=== PATIENT | male | born 1975 | race Caucasian/White ===

== ENCOUNTER → 2016-04-26 | Outpatient (CLI) | payer BC ==
--- NOTE | 2016-04-26 17:20 | PN ---
DATE OF SERVICE: 04/26/2016 This patient is a 40-year-old gentleman who has been followed in the sleep center for treatment of obstructive sleep apnea/hypopnea syndrome. I discussed results of the diagnostic sleep study and CPAP titration with the patient and his family in detail. Patient has moderate obstructive sleep apnea/hypopnea syndrome. He was recently started on treatment with CPAP at the pressure of 10 cm of water. He feels better with the machine. No feeling of pain in the body in the morning like he felt before. [place] Sleepiness Scale today is 8. I checked patient's CPAP unit. Usage for more than 4 hours is 17 out of 30 nights, although patient is using machine practically 100% of the time. Sometimes the mask goes out in the morning. For the whole time of usage, he used it for more than 4 hours during 28 out of 42 nights. Apnea-hypopnea index reading from the machine is 1.6 for the whole time; for the last night 0.9 only. Leak is up to 70 L per minute, which is acceptable. No snoring with the machine, according to his . MEDICATIONS: Sertraline. During physical exam, patient is in no distress. BP 135/75, HR 80, RR 16. Weight 232. Temperature 97.8. Oxygen saturation at room air 95%. HEENT: PERRLA, EOMI. Evaluation of oropharynx showed tongue protrudes midline. NECK: Supple. No JVD. Thyroid is not palpable. LUNGS: Clear to percussion and to auscultation. Good air exchange. No wheezing or rhonchi. HEART: S1, S2 regular. No murmurs, gallops or rubs. ABDOMEN: Slightly obese. EXTREMITIES: No clubbing or cyanosis. CASH MANAGEMENT OFFICER: Awake, alert, and oriented x3. Cranial nerves 2 to 7 intact. There is no fasciculation or atrophy noted. No focal deficits observed. IMPRESSION: 1. Moderate obstructive sleep apnea/hypopnea syndrome. Apnea-hypopnea index 17.6 with oxygen desaturation to 82.7%, controlled with CPAP at 10 cm of water. Patient is benefitting from treatment with the machine. Compliance is borderline. 2. Slight obesity. 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 4. History of depression. 5. Status post appendectomy. 6. Status post cholecystectomy. PLAN: 1. Continue treatment with CPAP every night for the whole night with the same RAMP 30 minutes starting from 5 cm of water. 2. Losing weight. 3. Sleep hygiene with regular time in bed for at least 8 hours. 4. Will consider using special pillow for the CPAP, which has space for the CPAP tube, because patient prefers to sleep on the side position. Other types of mask also could be used; for example, Optilife live nasal pillows. Thank you very much for allowing me to participate in the management your patient. Sincerely, Richar Membreno MD, PhD, FAASM. Diplomat of [place] [employer], Sleep Medicine Board by [place] [employer] [place] [employer] Inbound Customer Service Representative of [facility] [place]
== END | disposition home or self-care (01) ==
LOC: SLEEP 11:56
PROVIDERS: ATTEND Internal Medicine
DX: G47.33 Obstructive sleep apnea (adult) (pediatric) (principal); E66.9 Obesity, unspecified; F32.9 Major depressive disorder, single episode, unspecified; Z98.890 Other specified postprocedural states

== ENCOUNTER 2017-06-26 16:59 | Emergency (ER) | payer BC ==
[2017-06-26 17:15] VITALS: TEMP 97.5
[2017-06-26] MEDS ORDERED: MAG HYDROX/AL HYDROX/SIMETH 30 ML, HYOSCYAMINE ELIXIR 10 ML, CIMETIDINE HCL 300 MG, LID... PO STA ×4 (18:22)
--- NOTE | 2017-06-26 18:25 | ED ---
General Adult HPI - General Chief complaint: Chest Pain Stated complaint: Chest congestion Time Seen by Provider: 06/26/17 18:13 Source: patient, RN notes reviewed Mode of arrival: ambulatory Limitations: no limitations - History of Present Illness Initial comments: 42-year-old male presents with epigastric pain and chest pain which began approximately 2 hours prior to arrival. 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 He has never had heartburn before but states it increases symptoms to heartburn. Denies any radiating character to his pain. No diaphoresis. No vomiting. No history of CAD. Pain was exertional. At the time my evaluation his pain is present but is improved. - Related Data Home Medications Medication Instructions Recorded Confirmed Sertraline [Zoloft] 100 mg PO DAILY 06/26/17 06/26/17 Previous Rx's Medication Instructions Recorded Omeprazole [PriLOSEC] 20 mg PO AC-BID #60 cap 06/26/17 Allergies Allergy/AdvReac Type Severity Reaction Status Date / Time No Known Allergies Allergy Verified 06/26/17 19:01 Review of Systems ROS Statement: Those systems with pertinent positive or pertinent negative responses have been documented in the HPI. ROS Other: All systems not noted in ROS Statement are negative. Past Medical History Past Medical History: No Reported History History of Any Multi-Drug Resistant Organisms: None Reported Past Surgical History: Appendectomy, Cholecystectomy Past Psychological History: No Psychological Hx Reported Smoking Status: Never smoker Past Alcohol Use History: Occasional Past Drug Use History: None Reported General Exam Limitations: no limitations General appearance: alert, in no apparent distress Head exam: Present: atraumatic, normocephalic Eye exam: Present: normal appearance, PERRL, EOMI ENT exam: Present: normal exam Neck exam: Present: normal inspection. Absent: tenderness, meningismus Respiratory exam: Present: normal lung sounds bilaterally. Absent: respiratory distress, wheezes Cardiovascular Exam: Present: regular rate, normal rhythm GI/Abdominal exam: Present: soft, tenderness (Epigastric tenderness palpation). Absent: distended Extremities exam: Present: normal inspection, normal capillary refill. Absent: pedal edema, calf tenderness Neurological exam: Present: alert, oriented X3, CN II-XII intact. Absent: motor sensory deficit Psychiatric exam: Present: normal affect, normal mood Skin exam: Present: warm, dry, intact. Absent: cyanosis, diaphoretic Course Vital Signs 06/26/17 06/26/17 06/26/17 17:11 18:40 19:35 Temperature 97.5 F L Pulse Rate 78 75 74 Respiratory 18 16 16 Rate Blood Pressure 150/74 126/78 128/83 O2 Sat by Pulse 97 96 97 Oximetry - Reevaluation(s) Reevaluation #1: 06/26/17 18:24 Patient is eating Combos at the time my evaluation. EKG Findings - EKG Comments: EKG Findings:: EKG, normal sinus rhythm, ventricular rate 64, HI interval 174, QRS duration 104, no ST segment elevation or depression, no T-wave abnormality. Medical Decision Making - Medical Decision Making 42-year-old male presenting for evaluation of epigastric abdominal pain and chest pain. Patient describes this as a burning sensation with increased in salivation. EKG shows no definitive signs of ischemia. Workup including CBC, CMP, and troponin is negative. Chest x-ray negative for any focal airspace disease or acute process. Patient given a GI cocktail and has immediate relief of symptoms. History consistent with gastric reflux. He will be started on a proton pump inhibitor and will follow-up with his primary care physician. He will return to the emergency department with any change in chest pain or new concerns. - Lab Data Result diagrams: 06/26/17 18:45 06/26/17 18:45 Lab Results 06/26/17 06/26/17 06/26/17 Range/Units 18:45 18:45 18:45 WBC 6.8 (3.8-10.6) k/uL RBC 5.17 (4.30-5.90) m/uL Hgb 15.5 (13.0-17.5) gm/dL Hct 44.0 (39.0-53.0) % MCV 85.2 (80.0-100.0) fL MCH 29.9 (25.0-35.0) pg MCHC 35.1 (31.0-37.0) g/dL RDW 13.1 (11.5-15.5) % Plt Count 251 (150-450) k/uL Neutrophils % 64 % Lymphocytes % 24 % Monocytes % 5 % Eosinophils % 4 % Basophils % 1 % Neutrophils # 4.4 (1.3-7.7) k/uL Lymphocytes # 1.6 (1.0-4.8) k/uL Monocytes # 0.4 (0-1.0) k/uL Eosinophils # 0.3 (0-0.7) k/uL Basophils # 0.0 (0-0.2) k/uL PT (9.0-12.0) sec INR (<1.2) APTT (22.0-30.0) sec Sodium 143 (137-145) mmol/L Potassium 4.6 (3.5-5.1) mmol/L Chloride 105 (98-107) mmol/L Carbon Dioxide 26 (22-30) mmol/L Anion Gap 12 mmol/L BUN 18 (9-20) mg/dL Creatinine 0.70 (0.66-1.25) mg/dL Est GFR (CKD-EPI)AfAm >90 (>60 ml/min/1.73 sqM) Est GFR (CKD-EPI)NonAf >90 (>60 ml/min/1.73 sqM) Glucose 97 (74-99) mg/dL Calcium 9.8 (8.4-10.2) mg/dL Magnesium 2.1 (1.6-2.3) mg/dL Total Bilirubin 0.4 (0.2-1.3) mg/dL AST 39 (17-59) U/L ALT 64 (21-72) U/L Alkaline Phosphatase 56 (38-126) U/L Total Creatine Kinase 148 (55-170) U/L CK-MB (CK-2) 1.0 (0.0-2.4) ng/mL CK-MB (CK-2) Rel Index 0.7 Troponin I <0.012 (0.000-0.034) ng/mL Total Protein 7.3 (6.3-8.2) g/dL Albumin 4.5 (3.5-5.0) g/dL Lipase 33 (23-300) U/L 06/26/17 Range/Units 18:45 WBC (3.8-10.6) k/uL RBC (4.30-5.90) m/uL Hgb (13.0-17.5) gm/dL Hct (39.0-53.0) % MCV (80.0-100.0) fL MCH (25.0-35.0) pg MCHC (31.0-37.0) g/dL RDW (11.5-15.5) % Plt Count (150-450) k/uL Neutrophils % % Lymphocytes % % Monocytes % % Eosinophils % % Basophils % % Neutrophils # (1.3-7.7) k/uL Lymphocytes # (1.0-4.8) k/uL Monocytes # (0-1.0) k/uL Eosinophils # (0-0.7) k/uL Basophils # (0-0.2) k/uL PT 10.1 (9.0-12.0) sec INR 1.0 (<1.2) APTT 23.8 (22.0-30.0) sec Sodium (137-145) mmol/L Potassium (3.5-5.1) mmol/L Chloride (98-107) mmol/L Carbon Dioxide (22-30) mmol/L Anion Gap mmol/L BUN (9-20) mg/dL Creatinine (0.66-1.25) mg/dL Est GFR (CKD-EPI)AfAm (>60 ml/min/1.73 sqM) Est GFR (CKD-EPI)NonAf (>60 ml/min/1.73 sqM) Glucose (74-99) mg/dL Calcium (8.4-10.2) mg/dL Magnesium (1.6-2.3) mg/dL Total Bilirubin (0.2-1.3) mg/dL AST (17-59) U/L ALT (21-72) U/L Alkaline Phosphatase (38-126) U/L Total Creatine Kinase (55-170) U/L CK-MB (CK-2) (0.0-2.4) ng/mL CK-MB (CK-2) Rel Index Troponin I (0.000-0.034) ng/mL Total Protein (6.3-8.2) g/dL Albumin (3.5-5.0) g/dL Lipase (23-300) U/L Disposition Clinical Impression: Gastric reflux Disposition: HOME SELF-CARE Condition: Good Instructions: Gastritis (ED), Diet for Stomach Ulcers and Gastritis (ED) Prescriptions: Omeprazole [PriLOSEC] 20 mg PO AC-BID #60 cap Referrals: Chika Ortiz III, MD [Primary Care Provider] - 1-2 days Time of Disposition: 20:01
[2017-06-26 18:41] VITALS: RESP 16
[2017-06-26 19:00] LABS: Basophils % (A) 1 %; Eosinophils # (A) 0.3 k/uL (0-0.7); Eosinophils % (A) 4 %; HGB 15.5 gm/dL (13.0-17.5); Lymphocytes # (A) 1.6 k/uL (1.0-4.8); Lymphocytes % (A) 24 %; MCH 29.9 pg (25.0-35.0); MCHC 35.1 g/dL (31.0-37.0); MCV 85.2 fL (80.0-100.0); Mean Platelet Volume 6.6; Monocytes # (A) 0.4 k/uL (0-1.0); Monocytes % (A) 5 %; Neutrophils # (A) 4.4 k/uL (1.3-7.7); Neutrophils % (A) 64 %; Platelet Count 251 k/uL (150-450); RBC 5.17 m/uL (4.30-5.90); RDW 13.1 % (11.5-15.5); WBC 6.8 k/uL (3.8-10.6)
[2017-06-26 19:10] LABS: Partial Thromboplastin Time 23.8 sec (22.0-30.0); Prothrombin Time 10.1 sec (9.0-12.0)
[2017-06-26 19:11] LABS: ALT 64 U/L (21-72); AST 39 U/L (17-59); Albumin 4.5 g/dL (3.5-5.0); Alkaline Phosphatase 56 U/L (38-126); Anion Gap 12 mmol/L; Blood Urea Nitrogen 18 mg/dL (9-20); Calcium 9.8 mg/dL (8.4-10.2); Carbon Dioxide 26 mmol/L (22-30); Chloride 105 mmol/L (98-107); Glucose 97 mg/dL (74-99); Lipase 33 U/L (23-300); Magnesium 2.1 mg/dL (1.6-2.3); Potassium 4.6 mmol/L (3.5-5.1); Sodium 143 mmol/L (137-145); Total Bilirubin 0.4 mg/dL (0.2-1.3); Total Protein 7.3 g/dL (6.3-8.2)
[2017-06-26 19:26] LABS: Creatine Kinase 148 U/L (55-170)
--- NOTE | 2017-06-26 19:37 | XR ---
EXAMINATION TYPE: XR chest 2V DATE OF EXAM: 06/26/2017 COMPARISON: NONE HISTORY: Chest pain TECHNIQUE: Frontal and lateral views of the chest are obtained. FINDINGS: Heart and mediastinum are normal. Lungs are clear. Diaphragm is normal. There are chest le ads. Bony thorax appears normal. IMPRESSION: Normal chest
[2017-06-26 19:39] LABS: Troponin I <0.012 ng/mL (0.000-0.034)
[2017-06-26 19:41] VITALS: BP 128/83; PULSE 74
== END 2017-06-26 20:29 | disposition home or self-care (01) ==
LOC: EC 16:59
DX: K21.9 Gastro-esophageal reflux disease without esophagitis (principal); Z79.899 Other long term (current) drug therapy; Z90.49 Acquired absence of other specified parts of digestive tract
CPT/HCPCS: 36415; 71046; 80053; 82550; 82553; 83690; 83735; 84484; 85025; 85610; 85730; 93005; 99285

== ENCOUNTER → 2017-10-21 | Outpatient (CLI) | payer BC ==
--- NOTE | 2017-10-21 17:59 | XR ---
Bilateral elbows HISTORY: Bilateral elbow pain 3 views of each elbow submitted on a total of 6 images. Bone mineralization, joint spaces and alignment are maintained bilaterally. No evident joint effusion . Soft tissue swelling is suspected. No fracture or dislocation. IMPRESSION: There may be some mild soft tissue swelling, correlate.
--- NOTE | 2017-10-21 19:10 | XR ---
Right shoulder HISTORY: Pain, repetitive work 2 views of the right shoulder Bone mineralization, joint spaces and alignment are maintained. Right lung apex as visualized is norm al. No fracture or dislocation. Distal acromion slightly downturned. IMPRESSION: Normal right shoulder, shoulder MRI may be of benefit.
== END | disposition home or self-care (01) ==
LOC: RADXRMAIN 13:31
PROVIDERS: ATTEND Nurse Practitioner Family
DX: M25.512 Pain in left shoulder (principal); M25.522 Pain in left elbow; M25.521 Pain in right elbow

== ENCOUNTER 2017-12-24 19:03 | Emergency (ER) | payer BC, OTHER ==
[2017-12-24 19:35] VITALS: BP 128/79; PULSE 80; RESP 18; TEMP 98.3
== END 2017-12-24 20:28 ==
LOC: EC 19:03
DX: Z02.9 Encounter for administrative examinations, unspecified (principal)

== ENCOUNTER 2018-01-24 20:32 | Emergency (ER) | payer BC, OTHER ==
[2018-01-24 21:09] VITALS: TEMP 98.7
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
[2018-01-24 22:08] VITALS: BP 144/87; PULSE 82; RESP 16
== END 2018-01-24 22:00 | disposition home or self-care (01) ==
LOC: EC 20:32
DX: Z02.89 Encounter for other administrative examinations (principal); F32.9 Major depressive disorder, single episode, unspecified; Z79.899 Other long term (current) drug therapy
CPT/HCPCS: 82075; 99283

== ENCOUNTER 2018-02-10 13:41 | Observation (INO) | payer BC ==
--- NOTE | 2018-02-10 14:27 | ED ---
Syncope HPI - General Source: patient, RN notes reviewed, old records reviewed Mode of arrival: EMS Limitations: no limitations <Viky Olsen - Last Filed: 02/10/18 18:05> <Luis Alfredo Hoffman - Last Filed: 02/10/18 18:14> - General Chief Complaint: Syncope Stated Complaint: Fall/back head injury Time Seen by Provider: 02/10/18 14:23 - History of Present Illness Initial Comments: Patient is a 42-year-old male presents for his current status". Patient reports that he was at home, working on putting his house with [employer]. Patient states that he was standing. The next thing he knew he started feeling slightly dizzy and lightheaded. He reports that he fell backwards and he woke up due to back pain on the floor. He reports he hit his head. Patient states that he at this time is chest pain. He denies any significant abdominal pain. Patient reports that he is generally healthy. (Viky Olsen) - Related Data Home Medications Medication Instructions Recorded Confirmed Sertraline [Zoloft] 100 mg PO DAILY 06/26/17 02/10/18 Allergies Allergy/AdvReac Type Severity Reaction Status Date / Time No Known Allergies Allergy Verified 02/10/18 14:42 Review of Systems ROS Other: All systems not noted in ROS Statement are negative. <Viky Olsen - Last Filed: 02/10/18 18:05> ROS Other: All systems not noted in ROS Statement are negative. <Luis Alfredo Hoffman - Last Filed: 02/10/18 18:14> ROS Statement: Those systems with pertinent positive or pertinent negative responses have been documented in the HPI. Past Medical History Past Medical History: Asthma History of Any Multi-Drug Resistant Organisms: None Reported Past Surgical History: Appendectomy, Cholecystectomy Past Psychological History: Depression Smoking Status: Never smoker Past Alcohol Use History: None Reported Past Drug Use History: None Reported <Viky Olsen - Last Filed: 02/10/18 18:05> General Exam Limitations: no limitations General appearance: alert, in no apparent distress Head exam: Present: atraumatic, normocephalic, normal inspection Eye exam: Present: normal appearance, PERRL, EOMI. Absent: scleral icterus, conjunctival injection, periorbital swelling ENT exam: Present: normal exam, mucous membranes moist Neck exam: Present: normal inspection. Absent: tenderness, meningismus, lymphadenopathy Respiratory exam: Present: normal lung sounds bilaterally. Absent: respiratory distress, wheezes, rales, rhonchi, stridor Cardiovascular Exam: Present: regular rate, normal rhythm, normal heart sounds. Absent: systolic murmur, diastolic murmur, rubs, gallop, clicks GI/Abdominal exam: Present: soft, normal bowel sounds. Absent: distended, tenderness, guarding, rebound, rigid Extremities exam: Present: normal inspection, full ROM, normal capillary refill , other (Circular contusion of her mid back from falling on the paint can.). Absent: tenderness, pedal edema, joint swelling, calf tenderness Back exam: Present: normal inspection Neurological exam: Present: alert, oriented X3, CN II-XII intact Psychiatric exam: Present: normal affect, normal mood Skin exam: Present: warm <Viky Olsen - Last Filed: 02/10/18 18:05> <Luis Alfredo Hoffman - Last Filed: 02/10/18 18:14> - General Exam Comments Initial Comments: 42-year-old male. Alert and oriented 3. Patient appears in no significant distress. (Viky Olsen) Course <Viky Olsen - Last Filed: 02/10/18 18:05> <Luis Alfredo Hoffman - Last Filed: 02/10/18 18:14> Vital Signs 02/10/18 14:03 Temperature 97.1 F L Pulse Rate 83 Respiratory 18 Rate Blood Pressure 118/79 O2 Sat by Pulse 96 Oximetry - Reevaluation(s) Reevaluation #1: 02/10/18 18:12 PA supervision: I personally do a [id number] evaluation the patient including examination. Patient has equal episode last evening sudden onset. He had no preceding symptoms and has never had this before. Examination was unremarkable except for tenderness palpation of the mid and low back area where he impacted a paint can. I do agree with the assessment and plan the patient be admitted for evaluation of syncope. I did discuss case with Dr. mtz. (Luis Alfredo Hoffman) EKG Findings - EKG Comments: EKG Findings:: EKG performed at 1444 shows sinus rhythm, nonspecific ST and normality. Ventricular rate 75 beats were minute. Was 172. QRS ration 104 ms. QT QTC 34/420 ms. <Viky Olsen - Last Filed: 02/10/18 18:05> Medical Decision Making - Lab Data Result diagrams: 02/10/18 14:49 02/10/18 14:49 <Viky Olsen - Last Filed: 02/10/18 18:05> - Lab Data Result diagrams: 02/10/18 14:49 02/10/18 14:49 <Luis Alfredo Hoffman - Last Filed: 02/10/18 18:14> - Medical Decision Making 42-year-old male presents emergency department today with chief complaint of syncopal episode. He fell from standing hit passed out, hit his head and back. He did have loss of conscious. CT of the brain was completed and negative for any acute process. Patient's EKG, and chest x-ray are negative for any acute process. Thoracic and lumbar spine x-rays were showing no acute changes. Patient's blood work was reviewed and unremarkable. This time Patient case discussed with Dr. Hoffman. She does syncopal episode of unknown origin we will that the Patient for IV fluids, consult to cardiology. (Viky Olsen) - Lab Data Lab Results 02/10/18 02/10/18 02/10/18 Range/Units 14:49 14:49 14:49 WBC 7.4 (3.8-10.6) k/uL RBC 5.19 (4.30-5.90) m/uL Hgb 14.9 (13.0-17.5) gm/dL Hct 45.9 (39.0-53.0) % MCV 88.5 (80.0-100.0) fL MCH 28.7 (25.0-35.0) pg MCHC 32.4 (31.0-37.0) g/dL RDW 13.3 (11.5-15.5) % Plt Count 236 (150-450) k/uL Neutrophils % 70 % Lymphocytes % 20 % Monocytes % 4 % Eosinophils % 5 % Basophils % 1 % Neutrophils # 5.2 (1.3-7.7) k/uL Lymphocytes # 1.5 (1.0-4.8) k/uL Monocytes # 0.3 (0-1.0) k/uL Eosinophils # 0.3 (0-0.7) k/uL Basophils # 0.0 (0-0.2) k/uL PT (9.0-12.0) sec INR (<1.2) APTT (22.0-30.0) sec Sodium 141 (137-145) mmol/L Potassium 5.0 (3.5-5.1) mmol/L Chloride 103 (98-107) mmol/L Carbon Dioxide 29 (22-30) mmol/L Anion Gap 9 mmol/L BUN 16 (9-20) mg/dL Creatinine 0.90 (0.66-1.25) mg/dL Est GFR (CKD-EPI)AfAm >90 (>60 ml/min/1.73 sqM) Est GFR (CKD-EPI)NonAf >90 (>60 ml/min/1.73 sqM) Glucose 148 H (74-99) mg/dL Calcium 9.9 (8.4-10.2) mg/dL Magnesium 2.1 (1.6-2.3) mg/dL Total Bilirubin 0.5 (0.2-1.3) mg/dL AST 36 (17-59) U/L ALT 71 (21-72) U/L Alkaline Phosphatase 51 (38-126) U/L Total Creatine Kinase 228 H (55-170) U/L CK-MB (CK-2) 1.7 (0.0-2.4) ng/mL CK-MB (CK-2) Rel Index 0.7 Troponin I <0.012 (0.000-0.034) ng/mL Total Protein 7.5 (6.3-8.2) g/dL Albumin 4.5 (3.5-5.0) g/dL Urine Color Urine Appearance (Clear) Urine pH (5.0-8.0) Ur Specific [place] (1.001-1.035) Urine Protein (Negative) Urine Glucose (UA) (Negative) Urine Ketones (Negative) Urine Blood (Negative) Urine Nitrite (Negative) Urine Bilirubin (Negative) Urine Urobilinogen (<2.0) mg/dL Ur Leukocyte Esterase (Negative) 02/10/18 02/10/18 Range/Units 14:49 16:30 WBC (3.8-10.6) k/uL RBC (4.30-5.90) m/uL Hgb (13.0-17.5) gm/dL Hct (39.0-53.0) % MCV (80.0-100.0) fL MCH (25.0-35.0) pg MCHC (31.0-37.0) g/dL RDW (11.5-15.5) % Plt Count (150-450) k/uL Neutrophils % % Lymphocytes % % Monocytes % % Eosinophils % % Basophils % % Neutrophils # (1.3-7.7) k/uL Lymphocytes # (1.0-4.8) k/uL Monocytes # (0-1.0) k/uL Eosinophils # (0-0.7) k/uL Basophils # (0-0.2) k/uL PT 10.2 (9.0-12.0) sec INR 1.0 (<1.2) APTT 22.5 (22.0-30.0) sec Sodium (137-145) mmol/L Potassium (3.5-5.1) mmol/L Chloride (98-107) mmol/L Carbon Dioxide (22-30) mmol/L Anion Gap mmol/L BUN (9-20) mg/dL Creatinine (0.66-1.25) mg/dL Est GFR (CKD-EPI)AfAm (>60 ml/min/1.73 sqM) Est GFR (CKD-EPI)NonAf (>60 ml/min/1.73 sqM) Glucose (74-99) mg/dL Calcium (8.4-10.2) mg/dL Magnesium (1.6-2.3) mg/dL Total Bilirubin (0.2-1.3) mg/dL AST (17-59) U/L ALT (21-72) U/L Alkaline Phosphatase (38-126) U/L Total Creatine Kinase (55-170) U/L CK-MB (CK-2) (0.0-2.4) ng/mL CK-MB (CK-2) Rel Index Troponin I (0.000-0.034) ng/mL Total Protein (6.3-8.2) g/dL Albumin (3.5-5.0) g/dL Urine Color Yellow Urine Appearance Clear (Clear) Urine pH 6.0 (5.0-8.0) Ur Specific [place] 1.022 (1.001-1.035) Urine Protein Negative (Negative) Urine Glucose (UA) Negative (Negative) Urine Ketones Negative (Negative) Urine Blood Negative (Negative) Urine Nitrite Negative (Negative) Urine Bilirubin Negative (Negative) Urine Urobilinogen <2.0 (<2.0) mg/dL Ur Leukocyte Esterase Negative (Negative) Disposition Is patient prescribed a controlled substance at d/c from ED?: No Time of Disposition: 18:07 <Viky Olsen - Last Filed: 02/10/18 18:05> <Luis Alfredo Hoffman - Last Filed: 02/10/18 18:14> Clinical Impression: Syncope Disposition: ADMITTED IP TO THIS HOSP Condition: Stable Referrals: Chika Ortiz III, MD [Primary Care Provider] - 1-2 days
[2018-02-10] MEDS ORDERED: SODIUM CHLORIDE 0.9% 1,000 ML IV STA (14:40)
[2018-02-10 15:08] LABS: Basophils % (A) 1 %; Eosinophils # (A) 0.3 k/uL (0-0.7); Eosinophils % (A) 5 %; HCT 45.9 % (39.0-53.0); HGB 14.9 gm/dL (13.0-17.5); Lymphocytes # (A) 1.5 k/uL (1.0-4.8); Lymphocytes % (A) 20 %; MCH 28.7 pg (25.0-35.0); MCHC 32.4 g/dL (31.0-37.0); MCV 88.5 fL (80.0-100.0); Mean Platelet Volume 6.4; Monocytes # (A) 0.3 k/uL (0-1.0); Monocytes % (A) 4 %; Neutrophils # (A) 5.2 k/uL (1.3-7.7); Neutrophils % (A) 70 %; Platelet Count 236 k/uL (150-450); RBC 5.19 m/uL (4.30-5.90); RDW 13.3 % (11.5-15.5); WBC 7.4 k/uL (3.8-10.6)
[2018-02-10 15:12] LABS: ALT 71 U/L (21-72); AST 36 U/L (17-59); Albumin 4.5 g/dL (3.5-5.0); Alkaline Phosphatase 51 U/L (38-126); Anion Gap 9 mmol/L; Blood Urea Nitrogen 16 mg/dL (9-20); Calcium 9.9 mg/dL (8.4-10.2); Carbon Dioxide 29 mmol/L (22-30); Chloride 103 mmol/L (98-107); Glucose 148 mg/dL (74-99); Magnesium 2.1 mg/dL (1.6-2.3); Sodium 141 mmol/L (137-145); Total Bilirubin 0.5 mg/dL (0.2-1.3); Total Protein 7.5 g/dL (6.3-8.2)
[2018-02-10 15:13] LABS: Partial Thromboplastin Time 22.5 sec (22.0-30.0); Prothrombin Time 10.2 sec (9.0-12.0)
[2018-02-10 15:25] LABS: Creatine Kinase 228 U/L (55-170)
[2018-02-10 15:38] LABS: Creatine Kinase MB 1.7 ng/mL (0.0-2.4); Troponin I <0.012 ng/mL (0.000-0.034)
--- NOTE | 2018-02-10 16:11 | CT ---
EXAMINATION TYPE: CT brain faisal wo con DATE OF EXAM: 02/10/2018 COMPARISON: None HISTORY: 42-year-old male syncope, Fall today with pain after injury and LOC CT DLP: 1553.8 mGycm Automated exposure control for dose reduction was used. Technique: Examination of the head was done in axial plane without intravenous contrast. Coronal and sagittal reconstructions performed. CT of the cervical spine was obtained in axial plane without intravenous injection of contrast mater ial. Coronal and sagittal reformatted images were obtained from the axial views for evaluation of f ractures, spinal alignment and canal. FINDINGS: Head: There is no evidence of acute intracranial hemorrhage, acute ischemic changes, mass, mass-effect, or extra-axial fluid collection. There is no effacement of cerebral sulci or basal subarachnoid cister ns. There is no hydrocephalus. There is no midline shift. Landry-white matter distinction is preserv ed. Moderate mucosal thickening maxillary sinuses and scattered mild mucosal thickening throughout the et hmoid air cells. No calvarial fracture. Orbits and globes are intact. Cervical spine: The alignment of the cervical spine is normal on coronal and reformatted images. There is no cranial vertebral abnormality. Fracture of the cervical spine is not seen. The spinal canal stenosis apprecia emilio by CT though assessment of the spinal canal is limited particularly from C5 levels and below due to artifact from patient's shoulders. Sagittal and coronal reformatted images confirm above findings. COMBINED IMPRESSION: 1. No acute intracranial abnormality seen. 2. No acute fracture or malalignment of the cervical spine.
--- NOTE | 2018-02-10 16:18 | XR ---
EXAMINATION TYPE: XR chest 2V DATE OF EXAM: 02/10/2018 COMPARISON: 06/26/2017 HISTORY: 42-year-old male with syncope TECHNIQUE: PA and lateral views FINDINGS: Heart normal size. Aorta and pulmonary vasculature within normal limits. No consolidation or pleural effusion. Mild interstitial prominence is unchanged. IMPRESSION: Chronic changes without acute cardiopulmonary process.
--- NOTE | 2018-02-10 16:21 | XR ---
EXAMINATION TYPE: XR thoracic spine 3 views, XR lumbar spine 3V DATE OF EXAM: 02/10/2018 COMPARISON: NONE HISTORY: 42-year-old male with back pain after fall today FINDINGS: Thoracic spine: 12 rib bearing thoracic vertebral bodies. All pedicles are visualized. Vertebral body heights are pre served and alignment is maintained. Some limitation in this visualization of the uppermost thoracic v ertebral bodies due to overlying patient's shoulders. Lumbar spine: 5 lumbar type vertebral bodies. Mild facet arthropathy lower lumbar spine. Mild endplate spondylosis particularly at T11-L2 levels. Vertebral body heights are preserved and alignment is maintained. IMPRESSION: Thoracic and lumbar spine without vertebral compression collapse or malalignment. Mild facet arthropa thy lower lumbar spine and mild endplate spondylosis especially near the thoracolumbar junction.
[2018-02-10 17:09] LABS: Appearance,Urine Clear (Clear); Bilirubin,Urine Negative (Negative); Blood,Urine Negative (Negative); Color,Urine Yellow; Glucose,Urine (UA) Negative (Negative); Ketones,Urine Negative (Negative); Leukocyte Esterase,Urine Negative (Negative); Nitrite,Urine Negative (Negative); Protein,Urine Negative (Negative); Specific Gravity,Urine 1.022 (1.001-1.035); Urobilinogen,Urine <2.0 mg/dL (<2.0)
[2018-02-10] MEDS ORDERED: NITROGLYCERIN SL TABS 0.4 MG TAB SUBLINGUAL PRN (18:08)
[2018-02-10 21:06] LABS: Creatine Kinase 236 U/L (55-170)
[2018-02-10 21:20] LABS: Creatine Kinase MB 1.5 ng/mL (0.0-2.4); Troponin I <0.012 ng/mL (0.000-0.034)
[2018-02-11] MEDS ORDERED: ACETAMINOPHEN TAB 325 MG TAB PO PRN (01:29)
[2018-02-11 03:18] LABS: Cholesterol 237 mg/dL (<200); HDL Cholesterol 32 mg/dL (40-60)
[2018-02-11 03:19] LABS: Creatine Kinase 211 U/L (55-170)
[2018-02-11 03:28] LABS: Triglycerides 729 mg/dL (<150)
[2018-02-11 03:32] LABS: Creatine Kinase MB 1.1 ng/mL (0.0-2.4); Troponin I <0.012 ng/mL (0.000-0.034)
[2018-02-11] MEDS: ASPIRIN 325 MG TAB PO SCH (07:15)
--- NOTE | 2018-02-11 10:00 | P.CRDCN ---
History of Present Illness History of present illness: This is a pleasant 42-year-old male past medical history significant for asthma, obstructive sleep apnea and chronic daily dependence. He denies history of coronary artery disease, hypertension and dyslipidemia. He has never seen a installment account checker for any reason. We've been asked to see him in consultation for syncope. He states yesterday he was doing some wood working at home and became acutely tired feeling. He closed his eyes while standing and next thing he can remember he was on the floor. Unsure of LOC but states he doesn't remember falling. He hit his right lower back on a paint can. Denies chest pain, shortness of breath, dizziness, nausea, vomiting or palpitations prior to or thereafter falling. He denies regular alcohol use. EKG reveals sinus mechanism with no acute ST or T-wave abnormalities. Early repolarization noted in the inferior leads. Telemetry tracings have been unremarkable. Chest x-ray is negative for an acute cardiopulmonary process. CT of the head as well as cervical thoracic and lumbar spine is negative for any acute intracranial abnormality, no acute fracture or malignancy cervical spine noted. Laboratory data reviewed, WBC 7.4, hemoglobin 14.9, platelets 236 sodium 141, potassium 5, magnesium 2.1, creatinine 0.9, cardiac enzymes negative 3, triglycerides 729. He takes no daily cardiac medications. Cardiac risk factors are nicotine dependence. At the time of my exam: CONSTITUTIONAL: Denies fever. Denies chills. EYES: Denies blurred vision. Denies vision changes. Denies eye pain. EARS, NOSE, MOUTH & THROAT: Denies headache. Denies sore throat. Denies ear pain. CARDIOVASCULAR: Denies chest pain. Denies shortness of breath. Denies orthopnea. Denies PND. Denies palpitations. RESPIRATORY: Denies cough. GASTROINTESTINAL: Denies abdominal pain. Denies diarrhea. Denies constipation. Denies nausea. Denies vomiting. MUSCULOSKELETAL: Complains of pain to the right lower back. INTEGUMENTARY: Denies pruitis. Denies rash. NEUROLOGIC: Denies numbness. Denies tingling. Denies weakness. PSYCHIATRIC: Denies anxiety. Denies depression. ENDOCRINE: Denies fatigue. Denies weight change. Denies polydipsia. Denies polyurina. GENITOURINARY: Denies burning, hematuria or urgency with micturation. HEMATOLOGIC: Denies history of anemia. Denies bleeding. Blood pressure 115/74 heart rate 69 afebrile maintaining oxygen saturation on room air GENERAL: This is a 42-year-old male in no apparent distress at the time of my examination. HEENT: Head is atraumatic, normocephalic. Pupils are equal, round. Sclerae anicteric. Conjunctivae are clear. Mucous membranes of the mouth are moist. Neck is supple. There is no jugular venous distention. No carotid bruit is heard. LUNGS: Clear to auscultation no wheezes, rales or rhonchi. No chest wall tenderness is noted on palpation or with deep breathing. HEART: Regular rate and rhythm without murmurs, rubs or gallops. S1 and S2 heard. ABDOMEN: Soft, nontender. Bowel sounds are heard. No organomegaly noted. EXTREMITIES: No evidence of peripheral edema and no calf tenderness noted. VASCULAR: Radial and dorsalis pedis pulses palpated, no evidence of clubbing. NEUROLOGIC: Patient is awake, alert and oriented x3. ASSESSMENT Possible syncope. Chronic nicotine dependence Hypertriglyceridemia PLAN An acute coronary event has been ruled out with no EKG evidence of ischemia and negative cardiac enzymes. Check d-dimer. Obtain 2-D echocardiogram and Doppler study to assess cardiac structure and function. Initiate on fenofibrate 54 mg daily. Lifestyle modifications recommended for lowering of triglycerides with diet and complete alcohol cessation. Smoking cessation is recommended. Thank you kindly for this consultation. Nurse Practitioner note has been reviewed, I agree with a documented findings and plan of care. Patient was seen and examined. Past Medical History Past Medical History: Asthma, Sleep Apnea/CPAP/BIPAP Additional Past Medical History / Comment(s): constipation (last bm 3 days ago) , " watching cholesterol-no med yet), upper front dental , uses cpap machine , implant."hemorrhage rt eye 3 months ago" History of Any Multi-Drug Resistant Organisms: None Reported Past Surgical History: Appendectomy, Cholecystectomy Past Anesthesia/Blood Transfusion Reactions: No Reported Reaction Smoking Status: Former smoker - Past Family History Mother Family Medical History: Cancer Additional Family Medical History / Comment(s): age 61 from non small cell lung cancer Father Family Medical History: Hyperlipidemia, Hypertension Medications and Allergies Home Medications Medication Instructions Recorded Confirmed Type Sertraline [Zoloft] 100 mg PO DAILY 06/26/17 02/10/18 History Allergies Allergy/AdvReac Type Severity Reaction Status Date / Time No Known Allergies Allergy Verified 02/10/18 14:42 Physical Exam Vitals: Vital Signs Temp Pulse Pulse Resp BP BP Pulse Ox 02/11/18 07:30 97.9 F 69 18 115/74 94 L 02/11/18 03:45 98.2 F 69 18 149/79 96 02/11/18 03:33 18 02/10/18 23:48 18 02/10/18 23:35 98.1 F 74 18 118/68 96 02/10/18 20:00 18 02/10/18 19:25 97.2 F L 69 18 104/65 96 02/10/18 19:01 65 18 113/66 98 02/10/18 14:03 97.1 F L 83 18 118/79 96 Intake and Output 02/10/18 02/11/18 02/11/18 22:59 06:59 14:59 Other: Voiding Method Toilet Toilet # Voids 2 2 Results 02/10/18 14:49 02/10/18 14:49 Cardiac Enzymes 02/10/18 02/10/18 02/10/18 Range/Units 14:49 14:49 20:36 AST 36 (17-59) U/L CK-MB (CK-2) 1.7 1.5 (0.0-2.4) ng/mL Troponin I <0.012 <0.012 (0.000-0.034) ng/mL 02/11/18 Range/Units 02:47 AST (17-59) U/L CK-MB (CK-2) 1.1 (0.0-2.4) ng/mL Troponin I <0.012 (0.000-0.034) ng/mL Coagulation 02/10/18 Range/Units 14:49 PT 10.2 (9.0-12.0) sec APTT 22.5 (22.0-30.0) sec Lipids 02/11/18 Range/Units 02:47 Triglycerides 729 H (<150) mg/dL Cholesterol 237 H (<200) mg/dL HDL Cholesterol 32 L (40-60) mg/dL CBC 02/10/18 Range/Units 14:49 WBC 7.4 (3.8-10.6) k/uL RBC 5.19 (4.30-5.90) m/uL Hgb 14.9 (13.0-17.5) gm/dL Hct 45.9 (39.0-53.0) % Plt Count 236 (150-450) k/uL Comprehensive Metabolic Panel 02/10/18 Range/Units 14:49 Sodium 141 (137-145) mmol/L Potassium 5.0 (3.5-5.1) mmol/L Chloride 103 (98-107) mmol/L Carbon Dioxide 29 (22-30) mmol/L BUN 16 (9-20) mg/dL Creatinine 0.90 (0.66-1.25) mg/dL Glucose 148 H (74-99) mg/dL Calcium 9.9 (8.4-10.2) mg/dL AST 36 (17-59) U/L ALT 71 (21-72) U/L Alkaline Phosphatase 51 (38-126) U/L Total Protein 7.5 (6.3-8.2) g/dL Albumin 4.5 (3.5-5.0) g/dL Current Medications Generic Name Dose Route Start Last Admin Trade Name Freq PRN Reason Stop Dose Admin Acetaminophen 650 mg 02/11/18 01:29 02/11/18 01:35 Tylenol Tab PO 650 mg Q4HR PRN Administration Fever and/ or Pain Aspirin 325 mg 02/11/18 09:00 02/11/18 07:15 Aspirin PO Not Given DAILY SANTOSH Nitroglycerin 0.4 mg 02/10/18 18:08 Nitrostat SUBLINGUAL Q5M PRN Chest Pain Intake and Output 02/10/18 02/11/18 02/11/18 22:59 06:59 14:59 Other: Voiding Method Toilet Toilet # Voids 2 2 02/10/18 14:49 02/10/18 14:49
[2018-02-11] MEDS ORDERED: IBUPROFEN 800 MG TAB PO PRN (10:41)
[2018-02-11] MEDS ORDERED: traMADol 50 MG TAB PO PRN (10:43)
[2018-02-11] MEDS: FENOFIBRATE 54 MG TAB PO SCH (10:44)
--- NOTE | 2018-02-11 12:52 | ECHOF ---
Referral Reason:syncope MEASUREMENTS -------- HEIGHT: 165.1 cm WEIGHT: 106.6 kg BP: 115/74 RVIDd: 2.7 cm (< 3.3) IVSd: 1.4 cm (0.6 - 1.1) LVIDd: 4.6 cm (3.9 - 5.3) LVPWd: 1.4 cm (0.6 - 1.1) IVSs: 1.8 cm LVIDs: 3.5 cm LVPWs: 1.3 cm LA Diam: 3.7 cm (2.7 - 3.8) LAESV Index (A-L): 25.32 ml/m Ao Diam: 3.3 cm (2.0 - 3.7) AV Cusp: 2.3 cm (1.5 - 2.6) LA Diam: 3.9 cm (2.7 - 3.8) MV EXCURSION: 17.007 mm (> 18.000) MV EF SLOPE: 83 mm/s (70 - 150) EPSS: 0.3 cm MV E Robby: 0.52 m/s MV DecT: 150 ms MV A Robby: 0.38 m/s MV E/A Ratio: 1.37 RAP: 5.00 mmHg RVSP: 15.50 mmHg FINDINGS -------- Sinus rhythm. This was a technically adequate study. The left ventricular size is normal. There is moderate concentric left ventricular hypertrophy. O verall left ventricular systolic function is normal with, an EF between 55 - 60 %. The right ventricle is normal in size. Normal LA size by volume 22+/-6 ml/m2. The right atrial size is normal. The aortic valve is trileaflet, and appears structurally normal. No aortic stenosis or regurgitation. The mitral valve is normal. Mild mitral regurgitation is present. Mild tricuspid regurgitation present. There is no evidence of pulmonary hypertension. The right v entricular systolic pressure, as measured by Doppler, is 15.50mmHg. There is no pulmonic regurgitation present. The aortic root size is normal. There is no pericardial effusion. CONCLUSIONS -------- 1. Sinus rhythm. 2. This was a technically adequate study. 3. The left ventricular size is normal. 4. There is moderate concentric left ventricular hypertrophy. 5. Overall left ventricular systolic function is normal with, an EF between 55 - 60 %. 6. Normal LA size by volume 22+/-6 ml/m2. 7. The aortic valve is trileaflet, and appears structurally normal. No aortic stenosis or regurgitati on. 8. Mild mitral regurgitation is present. 9. Mild tricuspid regurgitation present. 10. There is no evidence of pulmonary hypertension. 11. There is no pulmonic regurgitation present. 12. The aortic root size is normal. 13. There is no pericardial effusion. PERIODICALS CLERK: Cora Dominguez RDCS
[2018-02-11] MEDS ORDERED: HYDROcodone/APAP 7.5-325MG 1 EACH TAB PO PRN (15:26)
--- NOTE | 2018-02-11 15:29 | P.HPIM ---
History of Present Illness This is a pleasant 42 years old male with past medical history of asthma and sleep apnea, depression. Presents because of syncope. Patient states that he was doing some work at home when his noticed that he was lying to his side and next thing he found himself on the floor and the told him he passed out. When he fell he had the right side of his middle back which has him a little bit. And patient states that his told him that she was shaking during the time he was on the floor and after that. And he told me he was confused for about 30 minutes after he woke up. However he denies any urinary bone continuous. The tongue biting. Patient has history of depression and he has STRESSES in his life however he denies homicidal or suicidal ideation. He takes few psychiatric medication. Which is compliant with as per patient. Patient denies smoking, occasional alcohol, and no illicit tracts. Review of Systems CONSTITUTIONAL: No fever, no malaise, no fatigue. HEENT: No recent visual problems or hearing problems. Denied any sore throat. CARDIOVASCULAR: No orthopnea, PND, no palpitations, no syncope. PULMONARY: No shortness of breath, no cough, no hemoptysis. GASTROINTESTINAL: No diarrhea, no nausea, no vomiting, no abdominal pain. Normoactive bowel sounds. NEUROLOGICAL: No headaches, no weakness, no numbness. HEMATOLOGICAL: Denies any bleeding or petechiae. GENITOURINARY: Denies any burning micturition, frequency, or urgency. MUSCULOSKELETAL/RHEUMATOLOGICAL: Denies any joint pain, swelling, or any muscle pain. ENDOCRINE: Denies any polyuria or polydipsia. Past Medical History Past Medical History: Asthma, Sleep Apnea/CPAP/BIPAP Additional Past Medical History / Comment(s): constipation (last bm 3 days ago) , " watching cholesterol-no med yet), upper front dental , uses cpap machine , implant."hemorrhage rt eye 3 months ago" History of Any Multi-Drug Resistant Organisms: None Reported Past Surgical History: Appendectomy, Cholecystectomy Past Anesthesia/Blood Transfusion Reactions: No Reported Reaction Smoking Status: Former smoker - Past Family History Mother Family Medical History: Cancer Additional Family Medical History / Comment(s): age 61 from non small cell lung cancer Father Family Medical History: Hyperlipidemia, Hypertension Medications and Allergies Home Medications Medication Instructions Recorded Confirmed Type Sertraline [Zoloft] 100 mg PO DAILY 06/26/17 02/10/18 History Fenofibrate [Lofibra] 54 mg PO DAILY #90 tab 02/11/18 Rx Allergies Allergy/AdvReac Type Severity Reaction Status Date / Time No Known Allergies Allergy Verified 02/10/18 14:42 Physical Exam Vitals: Vital Signs Temp Pulse Pulse Resp BP BP Pulse Ox 02/11/18 11:46 97.8 F 64 18 110/69 97 02/11/18 07:30 97.9 F 69 18 115/74 94 L 02/11/18 03:45 98.2 F 69 18 149/79 96 02/11/18 03:33 18 02/10/18 23:48 18 02/10/18 23:35 98.1 F 74 18 118/68 96 02/10/18 20:00 18 02/10/18 19:25 97.2 F L 69 18 104/65 96 02/10/18 19:01 65 18 113/66 98 Intake and Output 02/11/18 02/11/18 02/11/18 06:59 14:59 22:59 Intake Total 200 Balance 200 Intake: Other 200 Other: Voiding Method Toilet Toilet # Voids 2 GENERAL: The patient is alert and oriented x3, not in any acute distress. Well developed, well nourished. HEENT: Pupils are round and equally reacting to light. EOMI. No scleral icterus. No conjunctival pallor. Normocephalic, atraumatic. No pharyngeal erythema. No thyromegaly. CARDIOVASCULAR: S1 and S2 present. No murmurs, rubs, or gallops. PULMONARY: Chest is clear to auscultation, no wheezing or crackles. ABDOMEN: Soft, nontender, nondistended, normoactive bowel sounds. No palpable organomegaly. MUSCULOSKELETAL: No joint swelling or deformity. EXTREMITIES: No cyanosis, clubbing, or pedal edema. NEUROLOGICAL: Gross neurological examination did not reveal any focal deficits. SKIN: No rashes. Results CBC & Chem 7: 02/10/18 14:49 02/10/18 14:49 Labs: Abnormal Lab Results - Last 24 Hours (Table) 02/10/18 02/10/18 02/11/18 Range/Units 14:49 20:36 02:47 Total Creatine Kinase 228 H 236 H 211 H (55-170) U/L Triglycerides (<150) mg/dL Cholesterol (<200) mg/dL HDL Cholesterol (40-60) mg/dL 02/11/18 Range/Units 02:47 Total Creatine Kinase (55-170) U/L Triglycerides 729 H (<150) mg/dL Cholesterol 237 H (<200) mg/dL HDL Cholesterol 32 L (40-60) mg/dL Thrombosis Risk Factor Assmnt - Choose All That Apply Each Factor Represents 1 point: Obesity (BMI >25) Thrombosis Risk Factor Assessment Total Risk Factor Score: 1 Thrombosis Risk Factor Assessment Level: Low Risk Assessment and Plan Assessment: Syncope History of depression History of asthma History of sleep apnea Obesity Plan: This is a pleasant 42 years old male who presents with syncope. Continue with pain medication. Call cardiology and neurology consult. May needs EEG. Labs and medication were reviewed.. Continue same treatment. Continue with symptomatic treatment. Resume home medication. Monitor lytes and vitals. DVT and GI prophylaxis. Further recommendations of the clinical course of the patient DVT prophylaxis: Subcutaneous heparin GI Prophylaxis: Pepcid PT/OT: Pending Prognosis is guarded
[2018-02-11 19:24] LABS: Hemoglobin A1C 5.5 % (4.0-6.0)
--- NOTE | 2018-02-11 21:24 | P.CNNES ---
History of Present Illness Consult date: 02/11/18 History of Present Illness: The patient is a 42-year-old white male with history of obstructive sleep apnea who reports that he was doing some work and suddenly felt sleepy and passed out. This occurred on Saturday night. His heard the fall and came downstairs and saw him fallen down and apparently riding in pain. The patient had fallen back and hip the back on a can of sustained. She called out to him but he could not respond but he does recall her calling out to him. He states he was in too much pain at the time. The following day on Saturday he came to the emergency room. He states his back feels better today. He still gets occasional sharp pain in the back when he walks. He states his concentration seems to be off. He is not sure if he hit his head. Patient states he has a history of back problems when he was age 16-18 from sports injuries and he had does go to physical therapy at this time. There is no seizure activity reported. The thoracic and lumbar x-ray which showed no vertebral compression collapse or malalignment. He had a CAT scan of the brain and cervical spine which was negative for any acute abnormalities. The patient states that before passing out he did feel and in credible urge to suddenly fall asleep. Review of Systems Constitutional: Denies chills, Denies fever Eyes: denies blurred vision, denies pain Ears, nose, mouth and throat: Denies headache, Denies sore throat Cardiovascular: Denies chest pain, Denies shortness of breath Respiratory: Denies cough Gastrointestinal: Denies abdominal pain, Denies diarrhea, Denies nausea, Denies vomiting Musculoskeletal: Denies myalgias Neurological: Denies numbness, Denies weakness Psychiatric: Reports as per HPI Past Medical History Past Medical History: Asthma, Sleep Apnea/CPAP/BIPAP Additional Past Medical History / Comment(s): constipation (last bm 3 days ago) , "drDenisse watching cholesterol-no med yet), upper front dental , uses cpap machine , implant."hemorrhage rt eye 3 months ago" History of Any Multi-Drug Resistant Organisms: None Reported Past Surgical History: Appendectomy, Cholecystectomy Past Anesthesia/Blood Transfusion Reactions: No Reported Reaction Smoking Status: Former smoker - Past Family History Mother Family Medical History: Cancer Additional Family Medical History / Comment(s): age 61 from non small cell lung cancer Father Family Medical History: Hyperlipidemia, Hypertension Medications and Allergies Home Medications Medication Instructions Recorded Confirmed Type Sertraline [Zoloft] 100 mg PO DAILY 06/26/17 02/10/18 History Fenofibrate [Lofibra] 54 mg PO DAILY #90 tab 02/11/18 Rx Allergies Allergy/AdvReac Type Severity Reaction Status Date / Time No Known Allergies Allergy Verified 02/10/18 14:42 Physical Examination - Vital Signs Vital Signs: Vital Signs Temp Pulse Resp BP BP Pulse Ox 02/11/18 19:20 98.1 F 68 16 136/73 95 02/11/18 15:30 98.3 F 73 18 119/75 96 02/11/18 11:46 97.8 F 64 18 110/69 97 02/11/18 07:30 97.9 F 69 18 115/74 94 L 02/11/18 03:45 98.2 F 69 18 149/79 96 02/11/18 03:33 18 02/10/18 23:48 18 02/10/18 23:35 98.1 F 74 18 118/68 96 Intake and Output 02/11/18 02/11/18 02/11/18 06:59 14:59 22:59 Intake Total 422 436 Balance 422 436 Intake: Oral 222 436 Other 200 Other: Voiding Method Toilet Toilet # Voids 2 - Constitutional General appearance: obese - EENT EENT: PERRL - Respiratory Respiratory: lungs clear - Cardiovascular Cardiovascular: regular rate, normal S1, normal S2 - Integumentary Integumentary: normal - Neurologic Neurologic examination: Mental status: He was awake alert and oriented 3. His speech was fluent. There is no a aphasia or dysarthria. Cranial nerve examination: Cranial most 2 through 12 grossly intact Motor examination: 5 out of 5 throughout Sensory examination: Intact to light touch Deep tendon reflexes symmetric Gait intact Results - Laboratory Findings CBC and BMP: 02/10/18 14:49 02/10/18 14:49 Abnormal Lab Findings: Abnormal Labs 02/10/18 02/10/18 02/10/18 14:49 14:49 20:36 Glucose 148 H Total Creatine Kinase 228 H 236 H Triglycerides Cholesterol HDL Cholesterol 02/11/18 02/11/18 02:47 02:47 Glucose Total Creatine Kinase 211 H Triglycerides 729 H Cholesterol 237 H HDL Cholesterol 32 L Assessment and Plan (1) Syncope and collapse Current Visit: Yes Status: Acute SNOMED Code(s): 729836722 (2) Lumbar strain Current Visit: Yes Status: Acute SNOMED Code(s): 942593338 Plan: The patient is a 42-year-old man with history of obstructive sleep apnea who had a sudden urge to sleep while doing some work on Saturday and fell backwards hitting his lower back on a can of stain. He lost consciousness for a brief period of time. No seizure activity was reported. Patient was made aware of the [place] law regarding driving and loss of consciousness. He was made aware that he cannot operate a motorized vehicle until spell free for 6 months. Recommend further evaluation with MRI carotid ultrasound and EEG.
[2018-02-11] MEDS ORDERED: IBUPROFEN 600 MG TAB PO STA (22:14)
--- NOTE | 2018-02-11 23:08 | XR ---
EXAMINATION TYPE: XR orbit pre-MRI foreign body DATE OF EXAM: 02/11/2018 COMPARISON: NONE HISTORY: Pre-MRI for foreign body TECHNIQUE: AP Ariza, AP Burkett, and lateral views were obtained. FINDINGS: There is no radiopaque foreign body within the orbits. IMPRESSION: Negative examination.
--- NOTE | 2018-02-12 00:07 | US ---
EXAMINATION TYPE: US carotid duplex BILAT DATE OF EXAM: 02/11/2018 COMPARISON: NONE CLINICAL HISTORY: The patient and collapse. Syncope. EXAM MEASUREMENTS: RIGHT: Peak Systolic Velocity (PSV) cm/sec ----- Right CCA: 72.9 ----- Right ICA: 74.2 ----- Right ECA: 69.0 ICA/CCA ratio: 1.0 RIGHT: End Diastole cm/sec ----- Right CCA: 22.0 ----- Right ICA: 0 ----- Right ECA: 12.9 LEFT: Peak Systolic Velocity (PSV) cm/sec ----- Left CCA: 92.5 ----- Left ICA: 84.6 ----- Left ECA: 72.9 ICA/CCA ratio: 0.9 LEFT: End Diastole cm/sec ----- Left CCA: 26.0 ----- Left ICA: 22.0 ----- Left ECA: 16.8 VERTEBRALS (direction of flow): Right Vertebral: Antegrade Left Vertebral: Antegrade Rhythm: Normal Bilateral vessels dive deep. No significant stenosis seen IMPRESSION: There is antegrade flow in the vertebral arteries. The images and measurements suggest c lose to 0% stenosis in both internal carotid arteries. Criteria for Assigning % of Stenosis / Diameter reduction (Estimation based on the indirect measurements of the internal carotid artery velocities (ICA PSV). 1. Normal (no stenosis)=ICA PSV < 125 cm/s: ratio < 2.0: ICA EDV<40 cm/s. 2. Less than 50% stenosis=ICA PSV < 125 cm/s: ratio < 2.0: ICA EDV<40 cm/s. 3. 50 to 69% stenosis=ICA PSV of 125 to 230 cm/s: ration 2.0 ? 4.0: ICA EDV 40-100 cm/s. 4. Greater than 70% stenosis to near occlusion= ICA PSV > 230 cm/s: ratio > 4.0: ICA EDV > 100 cm/s. 5. Near occlusion= ICA PSV velocities may be low or undetectable: variable ratio and ICA EDV. 6. Total occlusion=unable to detect flow.
[2018-02-12] MEDS: ASPIRIN 325 MG TAB PO SCH (08:14)
[2018-02-12] MEDS: FENOFIBRATE 54 MG TAB PO SCH (08:14)
--- NOTE | 2018-02-12 13:21 | P.PN ---
Subjective This is a pleasant 42 years old male with past medical history of asthma and sleep apnea, depression. Presents because of syncope. Patient states that he was doing some work at home when his noticed that he was lying to his side and next thing he found himself on the floor and the told him he passed out. When he fell he had the right side of his middle back which has him a little bit. And patient states that his told him that she was shaking during the time he was on the floor and after that. And he told me he was confused for about 30 minutes after he woke up. However he denies any urinary bone continuous. The tongue biting. Patient has history of depression and he has STRESSES in his life however he denies homicidal or suicidal ideation. He takes few psychiatric medication. Which is compliant with as per patient. Patient denies smoking, occasional alcohol, and no illicit tracts. 02/04/2018. Patient today states he feels better. Cardiology evaluated the patient. D- dimer was checked and came back negative at 0.49. High cholesterol and antilipid medication has been provided by cardiology team. Neurologist saw the patient and recommended MRI of the brain as well as EEG and carotid duplex. Objective - Vital Signs Vital signs: Vital Signs Temp 97.7 F 02/12/18 11:49 Pulse 74 02/12/18 11:49 Resp 18 02/12/18 11:49 BP 109/71 02/12/18 11:49 Pulse Ox 97 02/12/18 11:49 Intake & Output 02/11/18 02/12/18 02/12/18 18:59 06:59 18:59 Intake Total 858 200 Balance 858 200 Intake: Oral 658 Other 200 200 Other: Voiding Method Toilet Toilet Toilet # Voids 1 - Exam GENERAL: The patient is alert and oriented x3, not in any acute distress. Well developed, well nourished. HEENT: Pupils are round and equally reacting to light. EOMI. No scleral icterus. No conjunctival pallor. Normocephalic, atraumatic. No pharyngeal erythema. No thyromegaly. CARDIOVASCULAR: S1 and S2 present. No murmurs, rubs, or gallops. PULMONARY: Chest is clear to auscultation, no wheezing or crackles. ABDOMEN: Soft, nontender, nondistended, normoactive bowel sounds. No palpable organomegaly. MUSCULOSKELETAL: No joint swelling or deformity. EXTREMITIES: No cyanosis, clubbing, or pedal edema. NEUROLOGICAL: Gross neurological examination did not reveal any focal deficits. SKIN: No rashes. - Labs CBC & Chem 7: 02/10/18 14:49 02/10/18 14:49 Assessment and Plan Assessment: Syncope History of depression History of asthma History of sleep apnea Obesity Plan: This is a pleasant 42 years old male who presents with syncope. Continue with pain medication. Call cardiology and neurology consult. May needs EEG. Labs and medication were reviewed.. Continue same treatment. Continue with symptomatic treatment. Resume home medication. Monitor lytes and vitals. DVT and GI prophylaxis. Further recommendations of the clinical course of the patient DVT prophylaxis: Subcutaneous heparin GI Prophylaxis: Pepcid PT/OT: Pending Prognosis is guarded
[2018-02-12] MEDS ORDERED: IBUPROFEN 600 MG TAB PO STA (17:11)
--- NOTE | 2018-02-12 20:32 | EEG ---
ELECTROENCEPHALOGRAM REPORT DATE OF EE02/12/2018 ELECTROENCEPHALOGRAPHIC EXAMINATION REPORT: INDICATION FOR EXAMINATION: This patient is a 42-year-old male being evaluated for acute syncope and chest pain. Patient has history of underlying obstructive sleep apnea. AGE: [age]. EEG FINDINGS: A routine 21-channel awake digital EEG recording was accomplished utilizing the 10-20 international system with bipolar and referential montages. The background activity in the most alert resting state consists of a low to medium amplitude, fairly well developed well sustained 6-7 Hz activity over the posterior head regions. This posterior rhythm attenuates minimally to eye opening. There is a small amount of low amplitude 18-20 Hz beta activity seen maximally over the anterior head regions. Muscle and movement artifact was observed on a few occasions during the tracing. Hyperventilation was not performed. Photic stimulation at flash frequencies of 2-30 Hz produced a good symmetrical occipital driving response. No epileptiform discharges were seen. Towards the mid and lateral portion of the tracing, the patient does drift into spontaneous drowsiness. IMPRESSION: This EEG is mildly abnormal in a diffuse fashion due to slight slowing of the EEG background. The EEG failed to reveal any focal, lateralized, or epileptiform abnormalities. Clinical correlation is recommended. MMODL / IJN: [id number] /
--- NOTE | 2018-02-12 21:51 | P.PN ---
Subjective Progress Note Date: 02/12/18 The patient is a 42-year-old man who was admitted to the hospital with syncopal event. He had a carotid ultrasound which did not show any blockage. He had an EEG which did not show any seizure activity. The cause of his syncopal event is unknown. Result of his fall caused some back pain. It's his back pain has reduced since yesterday. So his headache is slightly improved. is at bedside today and she reports that his head was on the ground and she feels that he must've hit his head. He had a CAT scan of the brain which was unremarkable. MRI of the brain and lumbar spine are pending. Overall the patient is doing slightly better. Also he feels his ability to focus is improving. Objective - Vital Signs Vital signs: Vital Signs Temp 98.3 F 02/12/18 19:53 Pulse 80 02/12/18 19:53 Resp 16 02/12/18 20:00 BP 148/81 02/12/18 19:53 Pulse Ox 94 L 02/12/18 19:53 Intake & Output 02/12/18 02/12/18 02/13/18 06:59 18:59 06:59 Intake Total 1120 Balance 1120 Intake: Oral 720 Other 400 Other: Voiding Method Toilet Toilet Toilet # Voids 1 - Constitutional General appearance: Present: obese - EENT Eyes: Present: EOMI, PERRLA - Respiratory Respiratory: bilateral: CTA - Cardiovascular Rhythm: regular - Neurologic Neurologic Comment(s): Neurologic examination: Mental status: He was awake alert and oriented Cranial nerves II through XII grossly intact Motor examination:5 out of 5 throughout - Labs CBC & Chem 7: 02/10/18 14:49 02/10/18 14:49 Assessment and Plan (1) Syncope and collapse Current Visit: Yes Status: Acute SNOMED Code(s): 502867018 (2) Lumbar strain Current Visit: Yes Status: Acute SNOMED Code(s): 945150247 Plan: The patient is a 42-year-old man admitted to the hospital with a syncopal event. As a result of his fall he landed on his back and possibly his head. He suffered some lumbar's sprain and some headache , both of which are improving. Neurologic examination is nonfocal. MRI of the brain and back are pending.. Carotid ultrasound did not show any significant stenosis.
--- NOTE | 2018-02-12 22:04 | MR ---
EXAMINATION TYPE: MR brain/lspine wo con DATE OF EXAM: 02/12/2018 COMPARISON: HISTORY: Syncope and collapse, lumbar strain Standard multiplanar, multisequence MRI departmental protocol Multiplanar, multisequence images of the brain and lumbar spine were acquired. Diffusion weighted henrik ging was performed. FINDINGS: Lumbar spine Vertebra have normal alignment. Disc spaces are fairly normal. There is very slight decreased signal in the L5-S1 disc. There are small posterior disc herniation at L5-S1. There is developmentally adequ ate spinal canal and no spinal stenosis. Lumbar nerve roots appear normal. There is no compression fr acture. There is no lumbar paraspinal mass. There is some increased signal on the T2 images in the ri ght side paraspinal musculature. There is no spinal stenosis. The lumbar neural foramina are fairly w ell-maintained. Impression There is a small posterior central L5-S1 lumbar disc herniation but no evidence of spinal stenosis or impingement on the neural elements. No fracture. There is some stranding within the right paraspinal musculature at the L3 level that could relate to myositis or bruising. If there is persistent clinical indication CT scan could evaluate better for tr ansverse process fracture. I see no obvious posterior element fracture. Brain There is mucosal thickening in the maxillary sinuses. Brainstem appears intact. On the T2 and FLAIR i mages there are a few scattered areas of increased signal in the periventricular white matter. Total number is approximately 5. The largest is in the insula left temporal lobe and measures 5 mm. These a re mostly less than 3 mm. The sella turcica appears normal. There is no evidence of a cortical infarc t. Corpus callosum appears normal. IMPRESSION: Scattered tiny white matter high signal foci are very few in number and of doubtful clinical signific ance. No evidence of a cortical infarct. Mild sinusitis.
[2018-02-13 07:58] VITALS: RESP 18
[2018-02-13] MEDS: ASPIRIN 325 MG TAB PO SCH (11:49)
[2018-02-13] MEDS: FENOFIBRATE 54 MG TAB PO SCH (11:50)
[2018-02-13 12:07] VITALS: BP 110/73; PULSE 66; TEMP 97.6
[2018-02-13] MEDS ORDERED: ATORVASTATIN 10 MG TAB PO STA (12:42)
--- NOTE | 2018-02-13 14:01 | P.CNOR ---
History of Present Illness - [facility] Consult date: 02/13/18 Consult reason: low back pain History of present illness: Patient is a very pleasant 42-year-old gentleman who presented to the hospital for his severe low back pain. Patient sustained a fall on Saturday when he fell back he landed on the right side of his lower back on a metal can. He has had severe pain and right-sided lower back since then. He denies any changes in bowel bladder function. Denies any urinary discoloration or blood in his urine. He denies any numbness tingling or weakness in his lower extremity. Denies any pain in his low back prior to this incident. He says the pain is been severe and he's been unable to get up and around or do any work around the house or has not been able to go to work this past week due to his pain. He denies any chest pain or shortness of breath. Denies any loss consciousness when he fell. Review of Systems As stated per HPI he denies any chest pain or shortness breath. Denies any loss of consciousness on the fall. He denies any blood in his urine. Past Medical History Past Medical History: Asthma, Sleep Apnea/CPAP/BIPAP Additional Past Medical History / Comment(s): constipation (last bm 3 days ago) , " watching cholesterol-no med yet), upper front dental , uses cpap machine , implant."hemorrhage rt eye 3 months ago" History of Any Multi-Drug Resistant Organisms: None Reported Past Surgical History: Appendectomy, Cholecystectomy Past Anesthesia/Blood Transfusion Reactions: No Reported Reaction Smoking Status: Former smoker - Past Family History Mother Family Medical History: Cancer Additional Family Medical History / Comment(s): age 61 from non small cell lung cancer Father Family Medical History: Hyperlipidemia, Hypertension Medications and Allergies Home Medications Medication Instructions Recorded Confirmed Type Sertraline [Zoloft] 100 mg PO DAILY 06/26/17 02/10/18 History Fenofibrate [Lofibra] 54 mg PO DAILY #90 tab 02/11/18 Rx Cyclobenzaprine [Flexeril] 10 mg PO TID #60 tab 02/13/18 Rx traMADol HCL [Ultram] 50 mg PO Q4HR PRN 3 Days #18 tab 02/13/18 Rx Allergies Allergy/AdvReac Type Severity Reaction Status Date / Time No Known Allergies Allergy Verified 02/10/18 14:42 Physical Examination Osteopathic Statement: *. No significant issues noted on an osteopathic structural exam other than those noted in the History and Physical/Consult. - L Spine: dermatomal strength & reflexes right Strength: hip flexion: 5/5 (At his low back he has some bruising at the right paraspinals. He has significant tenderness to palpation in his right paraspinals. There is no tenderness over the midline. His lower extremity is have sustained 5 out of 5 muscle strength wrist flexion plantar flexion hip flexion and knee extension. No pain with internal or external rotation of his hips. He has no pain with deep inspiration or expiration his abdomen soft nontender. He has positive pain with coughing and extension and flexion.) Results - Labs Labs: H & H 02/10/18 Range/Units 14:49 Hgb 14.9 (13.0-17.5) gm/dL Hct 45.9 (39.0-53.0) % Coagulation 02/10/18 Range/Units 14:49 INR 1.0 (<1.2) Result Diagrams: 02/10/18 14:49 02/10/18 14:49 - Diagnostic results Lumbar AP/lateral x-ray: report reviewed, image reviewed (X-rays lumbar spine reviewed shows good overall alignment to the lumbar spine low well maintained disc height there is no evidence of vertebral compression fracture but there may be some slight lucency at the transverse process at the mid lumbar spine to represent transverse process fracture) Assessment and Plan Assessment: Acute low back pain status post fall Paravertebral muscle strain Possible transverse process fracture lumbar spine Unable to work due to injury Plan: Acute low back pain status post fall Paravertebral muscle strain Possible transverse process fracture lumbar spine Unable to work due to injury The patient has a new injury due to his fall. He may have a transverse process fracture his lumbar spine and he certainly has significant muscle strain and blunt injury at his paraspinals due to his fall. He does not seem to have any neurologic change or kidney issue at this point. He is able to mobilize but he is unable to do any sort of heavy work, he is unable to do any bending twisting or lifting. I think it is okay for the patient to be home with muscle relaxers and a medications. We will is prescribed Flexeril and Ultram for him. He may have some benefit with LSO bracing for comfort as well. I do not think that he is able to work at this point given his job activities and he should avoid any bending twisting or lifting and avoid any lifting greater than 20 pounds. If he is able to be discharged home in , I would like to see him back back on Saturday for recheck evaluation and possible further imaging if necessary
[2018-02-14] MEDS ORDERED: ATORVASTATIN 10 MG TAB PO SCH (21:00)
--- NOTE | 2018-02-17 18:59 | P.DS ---
Providers Date of admission: 02/10/18 18:12 Attending physician: Grayson Rojas MD Consults: 02/10/18 18:08 Consult Physician Urgent Consulting Provider: Luz Jaeger Consult Reason/Comments: Syncope, Chest pain Do you want consulting provider notified?: Yes 02/10/18 22:51 Consult Physician Routine Consulting Provider: Emily Zurita Consult Reason/Comments: syncopal episode Do you want consulting provider notified?: Yes 02/13/18 12:27 Consult Physician Urgent Consulting Provider: Sammy Hastings Consult Reason/Comments: back injury Do you want consulting provider notified?: Yes Primary care physician: [facility] Course: diagnosis: Syncope History of depression History of asthma History of sleep apnea Obesity This is a pleasant 42 years old male with past medical history of asthma and sleep apnea, depression. Presents because of syncope. Patient states that he was doing some work at home when his noticed that he was lying to his side and next thing he found himself on the floor and the told him he passed out. When he fell he had the right side of his middle back which has him a little bit. And patient states that his told him that she was shaking during the time he was on the floor and after that. And he told me he was confused for about 30 minutes after he woke up. However he denies any urinary bone continuous. The tongue biting. Patient has been evaluated by neurologist and workup was not significant to find a specific cause for his syncope Including MRI of the brain, EEG carotid Doppler, and echo of the heart. Patient also has been evaluated by machine engraver. Both cardiology and neurology team cleared the patient for discharge with no more syncope. Orthopedic consult on evaluated the patient for ongoing back pain, and review of no neurological deficits and no evidence of kidney injury as per orthopedic evaluation patient is also cleared by orthopedic team for discharge on pain medication and muscle relaxants and to follow up with him as an outpatient. Patient has been instructed to avoid certain movement [see discharge instruction ], also was instructed of the [place] load that prevent driving for 6 month in patients with syncope or seizure. "Sick leave " copy is provided for the patient upon his request. pt thinks he is back to his baseline and he can be discharged Patient was cleared by orthopedic team also for discharge Problems and management plan was discussed with the patient and he verbalized understanding and acceptance Patient is found stable and can be discharged home however he needs follow-up as an outpatient. appointments are made for the pt and he agrees with them and timing. Gen: patient is a AAOx3, no distress CVS: S1-S2, RRR, no murmur Lungs: B/L CTA, no wheezing Abdomen: soft, no distention, no tenderness, positive bowel sounds Extremity: no leg edema or induration. gait: normal Time spent more than 35 minutes Patient Condition at Discharge: Stable Plan - Discharge Summary Discharge Rx Participant: Yes New Discharge Prescriptions: Continue Sertraline [Zoloft] 100 mg PO DAILY No Action Ibuprofen [Motrin Ib] 800 mg PO Q8H PRN PRN Reason: Pain Discharge Medication List Sertraline [Zoloft] 100 mg PO DAILY 06/26/17 [History] Ibuprofen [Motrin Ib] 800 mg PO Q8H PRN 02/15/18 [History] Follow up Appointment(s)/Referral(s): Sammy Hastings DO [Doctor of Osteopathic Medicine] - 02/17/18 ( appointment February 17- 8:30am ) Chika Ortiz III, MD [Primary Care Provider] - 02/18/18 2:00 pm (with radha ) Amy Zurita MD [STAFF PHYSICIAN] - 1 Week (No follow up appointment is needed per Dr. Nicci Casarez-follow up as needed) Patient Instructions/Handouts: Syncope (DC) Activity/Diet/Wound Care/Special Instructions: Patient to be off work until follow-up on February 17July ambulate to tolerance No bending or twisting, no pushing or pulling No lifting greater than 20 pounds No climbing Script provided per Dr. Hastings for back brace as well as return to work slip Per Dr. Nicci Zurita: no driving for 6 months related to syncopal event avoid all heavy machinery, power tools, etc. for 6 months When following up with Dr. Ortiz, recommend a sleep study Discharge Disposition: HOME SELF-CARE
== END 2018-02-13 15:40 | disposition home or self-care (01) ==
LOC: EC 13:41 → 1SOBS 18:12
PROVIDERS: ADMIT Internal Medicine; ATTEND Internal Medicine
DX: R55 Syncope and collapse (principal); J45.909 Unspecified asthma, uncomplicated; R51 Headache; R07.9 Chest pain, unspecified; F32.9 Major depressive disorder, single episode, unspecified; G47.33 Obstructive sleep apnea (adult) (pediatric); Z99.89 Dependence on other enabling machines and devices; K59.00 Constipation, unspecified; Z90.49 Acquired absence of other specified parts of digestive tract; Z79.899 Other long term (current) drug therapy; E66.9 Obesity, unspecified; Z68.39 Body mass index [BMI] 39.0-39.9, adult; E78.00 Pure hypercholesterolemia, unspecified; E78.1 Pure hyperglyceridemia; S39.012A Strain of muscle, fascia and tendon of lower back, initial encounter; Z87.891 Personal history of nicotine dependence; Z80.1 Family history of malignant neoplasm of trachea, bronchus and lung; Z82.49 Family history of ischemic heart disease and other diseases of the circulatory system; Y92.009 Unspecified place in unspecified non-institutional (private) residence as the place of occurrence of the external cause; W18.30XA Fall on same level, unspecified, initial encounter
CPT/HCPCS: 96360; 99285; 36415; 95816; 93005; 93306; 85379; 80061; 80053; 84443; 82550 ×2; 82553 ×2; 83735; 84484 ×2; 85025; 85610; 85730; 81003; 83036; 70030; 72070; 72100; 71046; 93880; 72125; 70450; 70551; 72148; G0378 ×4

== ENCOUNTER 2018-02-15 17:15 | Emergency (ER) | payer BC ==
[2018-02-15 17:27] VITALS: RESP 18
[2018-02-15] MEDS ORDERED: SODIUM CHLORIDE 0.9% 1,000 ML IV ONE (17:41)
--- NOTE | 2018-02-15 17:48 | ED ---
Fall HPI - General Chief Complaint: Fall Stated Complaint: Fall Time Seen by Provider: 02/15/18 17:29 Source: patient, EMS Mode of arrival: EMS - History of Present Illness Initial Comments: Patient is a 42-year-old male presenting for syncope. Patient states that he was in his basement doing some household work when he passed out. He is unsure how long his L4 and states that he does have a headache at this moment. He also states the back of his head hurts and that he has no chest pain, shortness breath, abdominal pain, nausea/vomiting/diarrhea but states that his lower back also does hurt. He was discharged on after a similar type episode happen on Saturday and he states that he is not sure what he was diagnosed with last time. EMS also states that there is a strong odor in the basement consistent with wood stain solvent - Related Data Home Medications Medication Instructions Recorded Confirmed Sertraline [Zoloft] 100 mg PO DAILY 06/26/17 02/15/18 Ibuprofen [Motrin Ib] 800 mg PO Q8H PRN 02/15/18 02/15/18 Allergies Allergy/AdvReac Type Severity Reaction Status Date / Time No Known Allergies Allergy Verified 02/15/18 17:30 Review of Systems ROS Statement: Those systems with pertinent positive or pertinent negative responses have been documented in the HPI. Constitutional: Negative for chills, fatigue and fever. HENT: Negative for congestion. Respiratory: Negative for chest tightness, shortness of breath and wheezing. Negative for cough Cardiovascular: Negative for chest pain and palpitations. Positive for COPD Gastrointestinal: Negative for abdominal pain. Negative for abdominal distention , diarrhea, nausea and vomiting. Genitourinary: Negative for dysuria. Musculoskeletal: Negative for back pain, neck pain and neck stiffness. Positive for lower back pain Skin: Negative for color change. Neurological: Negative for dizziness, speech difficulty, weakness and light- headedness. Positive for headache Psychiatric/Behavioral: Negative for agitation and confusion. Negative for anxiety ROS Other: All systems not noted in ROS Statement are negative. Past Medical History Past Medical History: Asthma, Sleep Apnea/CPAP/BIPAP Additional Past Medical History / Comment(s): constipation (last bm 3 days ago) , " watching cholesterol-no med yet), upper front dental , uses cpap machine , implant."hemorrhage rt eye 3 months ago" History of Any Multi-Drug Resistant Organisms: None Reported Past Surgical History: Appendectomy, Cholecystectomy Past Anesthesia/Blood Transfusion Reactions: No Reported Reaction Past Psychological History: Depression Smoking Status: Former smoker Past Alcohol Use History: Occasional Past Drug Use History: None Reported - Past Family History Mother Family Medical History: Cancer Additional Family Medical History / Comment(s): age 61 from non small cell lung cancer Father Family Medical History: Hyperlipidemia, Hypertension General Exam - General Exam Comments Initial Comments: Constitutional: Pt is oriented to person, place, and time. Pt appears well- developed and well-nourished. No distress. HENT: Head: Normocephalic and atraumatic. Eyes: EOM are normal. Neck: Normal range of motion. Neck supple. Cardiovascular: Normal rate, regular rhythm, S1 normal, S2 normal and normal heart sounds. Exam reveals no gallop and no friction rub. No murmur heard. Pulmonary/Chest: Effort normal and breath sounds normal. No tachypnea and no bradypnea. No respiratory distress. No wheezes or rales noted. Abdominal: Soft. Bowel sounds are normal. Pt exhibits no shifting dullness, no distension, no pulsatile liver, no fluid wave, no abdominal bruit and no ascites. There is no tenderness. There is no rigidity, no rebound, no guarding, no tenderness at McBurney's point and negative Martinez's sign. Musculoskeletal: Normal range of motion. Tenderness to palpation of L1-2 midline Neurological: Pt is alert and oriented to person, place, and time. No cranial nerve deficit. Skin: Skin is warm and dry. No rash noted. Pt is not diaphoretic. No erythema. No pallor. Psychiatric: Pt has a normal mood and affect. Pt behavior is normal. Thought content normal. Limitations: no limitations Course Vital Signs 02/15/18 02/15/18 17:24 20:28 Temperature 98.8 F 98 F Pulse Rate 71 77 Respiratory 18 18 Rate Blood Pressure 129/101 110/71 O2 Sat by Pulse 96 100 Oximetry Medical Decision Making - Medical Decision Making Laboratory studies showed that there was no significant leukocytosis and electrolytes were relatively within normal limits. EKG also showed no significant arrhythmias which would be explaining the patient's syncopal episode. Alcohol level was noted to be negative as well as drug screen. Lumbar spine CT was performed and showed a transverse fractures which were previously identified by orthopedics. It was explained to the patient that because this is a second time this week that this is happening, the patient should be placed in observation for continued monitoring. His explained that this is possibly secondary to the fumes that he was exposed to in the basement but it cannot be for certain and that is why he needs hospitalizations. However , the patient stated that he wanted to leave as he felt better and he really thought it was secondary to the fumes. It was explained that leaving AGAINST MEDICAL ADVICE could result in or disability and the patient expressed understanding.Explained all labs and diagnostic test results and that we will discharge the patient home and patient is to follow up with PCP in 1-2 days and return to the ED if symptoms worsen. Pt is agreeable to plan. - Lab Data Result diagrams: 02/15/18 18:20 02/15/18 18:20 Lab Results 02/15/18 02/15/18 02/15/18 Range/Units 18:20 18:20 18:20 WBC 7.1 (3.8-10.6) k/uL RBC 5.27 (4.30-5.90) m/uL Hgb 15.5 (13.0-17.5) gm/dL Hct 45.7 (39.0-53.0) % MCV 86.7 (80.0-100.0) fL MCH 29.4 (25.0-35.0) pg MCHC 33.9 (31.0-37.0) g/dL RDW 13.2 (11.5-15.5) % Plt Count 228 (150-450) k/uL Neutrophils % 67 % Lymphocytes % 19 % Monocytes % 6 % Eosinophils % 6 % Basophils % 1 % Neutrophils # 4.7 (1.3-7.7) k/uL Lymphocytes # 1.4 (1.0-4.8) k/uL Monocytes # 0.4 (0-1.0) k/uL Eosinophils # 0.4 (0-0.7) k/uL Basophils # 0.0 (0-0.2) k/uL PT 10.3 (9.0-12.0) sec INR 1.1 (<1.2) APTT 22.2 (22.0-30.0) sec Sodium 140 (137-145) mmol/L Potassium 4.6 (3.5-5.1) mmol/L Chloride 103 (98-107) mmol/L Carbon Dioxide 25 (22-30) mmol/L Anion Gap 12 mmol/L BUN 17 (9-20) mg/dL Creatinine 0.70 (0.66-1.25) mg/dL Est GFR (CKD-EPI)AfAm >90 (>60 ml/min/1.73 sqM) Est GFR (CKD-EPI)NonAf >90 (>60 ml/min/1.73 sqM) Glucose 90 (74-99) mg/dL Calcium 9.7 (8.4-10.2) mg/dL Total Bilirubin 0.7 (0.2-1.3) mg/dL AST 44 (17-59) U/L ALT 54 (21-72) U/L Alkaline Phosphatase 42 (38-126) U/L Troponin I (0.000-0.034) ng/mL Total Protein 7.6 (6.3-8.2) g/dL Albumin 4.7 (3.5-5.0) g/dL Urine Opiates Screen (NotDetected) Ur Oxycodone Screen (NotDetected) Urine Methadone Screen (NotDetected) Ur Propoxyphene Screen (NotDetected) Ur Barbiturates Screen (NotDetected) U Tricyclic Antidepress (NotDetected) Ur Phencyclidine Scrn (NotDetected) Ur Amphetamines Screen (NotDetected) U Methamphetamines Scrn (NotDetected) U Benzodiazepines Scrn (NotDetected) Urine Cocaine Screen (NotDetected) U Marijuana (THC) Screen (NotDetected) Serum Alcohol <10 mg/dL 02/15/18 02/15/18 Range/Units 18:20 19:42 WBC (3.8-10.6) k/uL RBC (4.30-5.90) m/uL Hgb (13.0-17.5) gm/dL Hct (39.0-53.0) % MCV (80.0-100.0) fL MCH (25.0-35.0) pg MCHC (31.0-37.0) g/dL RDW (11.5-15.5) % Plt Count (150-450) k/uL Neutrophils % % Lymphocytes % % Monocytes % % Eosinophils % % Basophils % % Neutrophils # (1.3-7.7) k/uL Lymphocytes # (1.0-4.8) k/uL Monocytes # (0-1.0) k/uL Eosinophils # (0-0.7) k/uL Basophils # (0-0.2) k/uL PT (9.0-12.0) sec INR (<1.2) APTT (22.0-30.0) sec Sodium (137-145) mmol/L Potassium (3.5-5.1) mmol/L Chloride (98-107) mmol/L Carbon Dioxide (22-30) mmol/L Anion Gap mmol/L BUN (9-20) mg/dL Creatinine (0.66-1.25) mg/dL Est GFR (CKD-EPI)AfAm (>60 ml/min/1.73 sqM) Est GFR (CKD-EPI)NonAf (>60 ml/min/1.73 sqM) Glucose (74-99) mg/dL Calcium (8.4-10.2) mg/dL Total Bilirubin (0.2-1.3) mg/dL AST (17-59) U/L ALT (21-72) U/L Alkaline Phosphatase (38-126) U/L Troponin I <0.012 (0.000-0.034) ng/mL Total Protein (6.3-8.2) g/dL Albumin (3.5-5.0) g/dL Urine Opiates Screen Not Detected (NotDetected) Ur Oxycodone Screen Not Detected (NotDetected) Urine Methadone Screen Not Detected (NotDetected) Ur Propoxyphene Screen Not Detected (NotDetected) Ur Barbiturates Screen Not Detected (NotDetected) U Tricyclic Antidepress Not Detected (NotDetected) Ur Phencyclidine Scrn Not Detected (NotDetected) Ur Amphetamines Screen Not Detected (NotDetected) U Methamphetamines Scrn Not Detected (NotDetected) U Benzodiazepines Scrn Not Detected (NotDetected) Urine Cocaine Screen Not Detected (NotDetected) U Marijuana (THC) Screen Not Detected (NotDetected) Serum Alcohol mg/dL - EKG Data EKG Comments: Normal sinus rhythm with a rate of 60 bpm, CT interval 174, QRS 100, QTC 416. There are no significant ST depressions or elevations. Disposition Clinical Impression: Syncope, Lumbar transverse process fracture Disposition: Left Against Medical Advice Condition: Fair Instructions: Syncope (ED) Is patient prescribed a controlled substance at d/c from ED?: No Referrals: Chika Ortiz III, MD [Primary Care Provider] - 1-2 days Rainer Martinez MD [STAFF PHYSICIAN] - 1-2 days Time of Disposition: 20:17
[2018-02-15 18:32] LABS: Basophils % (A) 1 %; Eosinophils # (A) 0.4 k/uL (0-0.7); Eosinophils % (A) 6 %; HCT 45.7 % (39.0-53.0); HGB 15.5 gm/dL (13.0-17.5); Lymphocytes # (A) 1.4 k/uL (1.0-4.8); Lymphocytes % (A) 19 %; MCH 29.4 pg (25.0-35.0); MCHC 33.9 g/dL (31.0-37.0); MCV 86.7 fL (80.0-100.0); Mean Platelet Volume 6.8; Monocytes # (A) 0.4 k/uL (0-1.0); Monocytes % (A) 6 %; Neutrophils # (A) 4.7 k/uL (1.3-7.7); Neutrophils % (A) 67 %; Platelet Count 228 k/uL (150-450); RBC 5.27 m/uL (4.30-5.90); RDW 13.2 % (11.5-15.5); WBC 7.1 k/uL (3.8-10.6)
[2018-02-15 18:41] LABS: INR 1.1 (<1.2); Partial Thromboplastin Time 22.2 sec (22.0-30.0); Prothrombin Time 10.3 sec (9.0-12.0)
--- NOTE | 2018-02-15 18:41 | CT ---
EXAMINATION TYPE: CT brain faisal reyes con DATE OF EXAM: 02/15/2018 COMPARISON: NONE HISTORY: Syncope with collapse. Posterior head injury and back pain. CT DLP: 1440.1 mGycm. Automated Exposure Control for Dose Reduction was Utilized. TECHNIQUE: CT scan of the head and cervical spine are performed without contrast. FINDINGS: There is no acute intracranial hemorrhage, mass effect, or midline shift identified. The ventricles and sulci are within normal limits in size. The globes are intact and the visualized sin uses are clear. Cervical spine is visualized in its entirety from C1 through upper thoracic levels and demonstrates s atisfactory alignment without evidence of acute fracture or dislocation. Prevertebral soft tissue ap pears within normal limits. The C1-C2 articulation is unremarkable. IMPRESSION: 1. There is no acute fracture or dislocation evident in the cervical spine. 2. No acute intracranial hemorrhage, mass effect, or midline shift is seen.
[2018-02-15 18:44] LABS: ALT 54 U/L (21-72); AST 44 U/L (17-59); Albumin 4.7 g/dL (3.5-5.0); Alcohol <10 mg/dL; Alkaline Phosphatase 42 U/L (38-126); Anion Gap 12 mmol/L; Blood Urea Nitrogen 17 mg/dL (9-20); Calcium 9.7 mg/dL (8.4-10.2); Carbon Dioxide 25 mmol/L (22-30); Chloride 103 mmol/L (98-107); Glucose 90 mg/dL (74-99); Potassium 4.6 mmol/L (3.5-5.1); Sodium 140 mmol/L (137-145); Total Bilirubin 0.7 mg/dL (0.2-1.3); Total Protein 7.6 g/dL (6.3-8.2)
--- NOTE | 2018-02-15 18:48 | CT ---
EXAMINATION TYPE: CT of the thoracic and lumbar spine DATE OF EXAM: 02/15/2018 COMPARISON: None. HISTORY: Syncope with collapse, back pain CT DLP: 2292 mGycm Automated exposure control for dose reduction was used. CONTRAST: CT scan of the lumbar is performed unenhanced. Enhanced CT of the lumbar spine and thoracic spine was performed. Bone and soft tissue window settin gs are submitted as well as coronal and sagittal reconstructions. Thoracic and lumbar spine have normal anatomic alignment. Vertebral bodies are maintained. Facets rem ain in normal alignment. Intervertebral disc space heights are maintained. There are rudimentary ribs at L1. Minimally displaced fractures are identified of the right L2 and L3 transverse processes. There is no evidence of retroperitoneal hematoma. The sacroiliac joints are wi thin normal limits. Plan Consultant image reveals the hips to be unremarkable. Limited evaluation of ribs are within normal limits. IMPRESSION: L1 and L2 minimally displaced right sided transverse process fractures.
[2018-02-15 20:11] LABS: Amphetamine Screen,Urine Not Detected (NotDetected); Barbiturate Screen,Urine Not Detected (NotDetected); Benzodiazepines Screen,Urine Not Detected (NotDetected); Cocaine Screen,Urine Not Detected (NotDetected); Methadone Screen, Urine Not Detected (NotDetected); Opiate Screen,Urine Not Detected (NotDetected); Oxycodone Screen, Urine Not Detected (NotDetected); Phencyclidine Screen,Urine Not Detected (NotDetected); Tricyclic Antidepressant,Urine Not Detected (NotDetected); Urn Cannabinoid Scrn Not Detected (NotDetected)
[2018-02-15 20:30] VITALS: BP 110/71; PULSE 77; TEMP 98
== END 2018-02-15 20:28 | disposition left against medical advice (07) ==
LOC: EC 17:15
DX: S32.019A Unspecified fracture of first lumbar vertebra, initial encounter for closed fracture (principal); S32.029A Unspecified fracture of second lumbar vertebra, initial encounter for closed fracture; R55 Syncope and collapse; F32.9 Major depressive disorder, single episode, unspecified; G47.30 Sleep apnea, unspecified; Z99.89 Dependence on other enabling machines and devices; Z79.899 Other long term (current) drug therapy; Z87.891 Personal history of nicotine dependence; W19.XXXA Unspecified fall, initial encounter; Y93.89 Activity, other specified; Y92.009 Unspecified place in unspecified non-institutional (private) residence as the place of occurrence of the external cause; Z53.8 Procedure and treatment not carried out for other reasons
CPT/HCPCS: 36415; 70450; 72125; 72128; 72131; 80053; 80306; 80320; 84484; 85025; 85610; 85730; 93005; 99284

== ENCOUNTER → 2018-04-22 | Outpatient (CLI) | payer BC ==
--- NOTE | 2018-04-22 14:41 | US ---
EXAMINATION TYPE: US abdomen comp/pelvis limited DATE OF EXAM: 04/22/2018 COMPARISON: NONE CLINICAL HISTORY: R10.31 RLQ Pain, R19.0 Abd/Pelvis Mass/Swelling. EXAM MEASUREMENTS: Liver Length: 16.6 cm Gallbladder Wall: Surgically absent cm CBD: 0.6 cm Spleen: 10.4 cm Right Kidney: 12.9 x 5.0 x 5.5 cm Left Kidney: 12.4 x 6.3 x 6.2 cm Pancreas: visualized portions wnl Liver: difficult to penetrate Gallbladder: Surgically absent CBD: wnl Spleen: wnl Right Kidney: No hydronephrosis or masses seen Left Kidney: two small cysts, largest measures 1.1 x 1.1 x 1.3 cm Upper IVC: wnl Abd Aorta: wnl Bladder: wnl Bilateral Jets Seen No Prominent prostate noted. Scanned RLQ over area of pain. Patient very tender, no definite abnormality noted, valsalva maneuve r utilized. IMPRESSION: 1. No suspicious abnormality right lower quadrant calcifications tenderness. 2. Left simple cortical renal cysts. 3. There is some limitation due to bowel gas.
== END ==
LOC: RADUSWWP 08:26
PROVIDERS: ATTEND Nurse Practitioner Family
DX: N28.1 Cyst of kidney, acquired (principal)
CPT/HCPCS: 76700; 76857

== ENCOUNTER → 2018-10-14 | Outpatient (CLI) | payer BC ==
--- NOTE | 2018-10-14 20:19 | EST ---
EXERCISE STRESS DATE OF SERVICE: 10/14/2018 AGE: 43 SEX: Male HT: 65 WT: 240 PROTOCOL: Jose Roberto STAGE: 3 DURATION OF EXERCISE: 9:00 HEART RATE REST: 77 BLOOD PRESSURE REST: 99/72 MAXIMUM HEART RATE ACHIEVED: 156 MAXIMUM BLOOD PRESSURE: 174/53 85% MPHR: 152 100% MPHR: 179 METS: 10.5 INDICATIONS: Chest pain, shortness of breath. CLINICAL INFORMATION: This is a walking regular stress test. Baseline EKG revealed normal sinus rhythm without significant ST-T changes. Patient walked for 9 minutes on standard Jose Roberto protocol and achieved a maximal heart rate of 156 beats per minute, developed fatigue and shortness of breath but did not have any angina or arrhythmia. EKG did not reveal any ST-segment changes to indicate ischemia. There was no arrhythmia. By EKG criteria, this is a negative stress test with fair exercise capacity. There was no angina or arrhythmia or EKG changes to indicate ischemia. MMODL / IJN: [id number] /
== END | disposition home or self-care (01) ==
LOC: RADNMMAIN 08:34
PROVIDERS: ATTEND Family Medicine
DX: R07.9 Chest pain, unspecified (principal)
CPT/HCPCS: 93017

== ENCOUNTER 2020-11-01 13:32 | Emergency (ER) | payer BC ==
[2020-11-01 13:38] VITALS: TEMP 98.3
[2020-11-01] MEDS ORDERED: IBUPROFEN 600 MG TAB PO STA (15:33)
--- NOTE | 2020-11-01 15:47 | XR ---
EXAMINATION TYPE: XR chest 1V portable DATE OF EXAM: 11/01/2020 COMPARISON: Chest x-ray February 10, 2018 HISTORY: Covid Positive with cough and shortness of breath TECHNIQUE: Single AP portable frontal upright view of the chest is obtained. FINDINGS: There is no new Suspicious focal air space opacity, pleural effusion, or pneumothorax seen . The cardiac silhouette size is enlarged on current study. The osseous structures are intact. IMPRESSION: Cardiomegaly without new acute pulmonary process.
[2020-11-01] MEDS ORDERED: SODIUM CHLORIDE 0.9% 50 ML IVPB ONE (16:30)
[2020-11-01] MEDS ORDERED: CASIRIVIMAB (REGN10933) (EUA) 600 MG, IMDEVIMAB (REGN10987) (EUA) 600 MG in SODIUM CHLO... IVPB ONE (16:30)
--- NOTE | 2020-11-01 17:46 | ED ---
General Adult HPI - General Chief complaint: Shortness of Breath Stated complaint: Covid+, SOB Time Seen by Provider: 11/01/20 15:00 Source: patient Mode of arrival: ambulatory Limitations: no limitations - History of Present Illness Initial comments: Patient is a 45-year-old male with history of mild asthma, presenting to the emergency Department with complaints of a positive Covid test today. He states yesterday he started developing a headache, cough, chills. He states he was exposed to somebody at work a few days ago. He went today for a Covid test and it was positive. He came in for evaluation. He denies any fevers or chills, no abdominal pain, he's been having some mild nausea. He does admit to some mild shortness of breath, no chest pains. No history of blood clots. He has no further complaints at this time. Upon arrival to the ER, his vital signs are stable. - Related Data Home Medications Medication Instructions Recorded Confirmed Sertraline [Zoloft] 100 mg PO DAILY 06/26/17 02/15/18 Ibuprofen [Motrin Ib] 800 mg PO Q8H PRN 02/15/18 02/15/18 Allergies Allergy/AdvReac Type Severity Reaction Status Date / Time No Known Allergies Allergy Verified 11/01/20 13:38 Review of Systems ROS Statement: Those systems with pertinent positive or pertinent negative responses have been documented in the HPI. ROS Other: All systems not noted in ROS Statement are negative. Past Medical History Past Medical History: Asthma, Sleep Apnea/CPAP/BIPAP Additional Past Medical History / Comment(s): constipation (last bm 3 days ago), " watching cholesterol-no med yet), upper front dental , uses cpap machine, implant."hemorrhage rt eye 3 months ago" History of Any Multi-Drug Resistant Organisms: None Reported Past Surgical History: Appendectomy, Cholecystectomy Past Anesthesia/Blood Transfusion Reactions: No Reported Reaction Past Psychological History: Depression Smoking Status: Never smoker Past Alcohol Use History: Occasional Past Drug Use History: None Reported - Past Family History Mother Family Medical History: Cancer Additional Family Medical History / Comment(s): age 61 from non small cell lung cancer Father Family Medical History: Hyperlipidemia, Hypertension General Exam - General Exam Comments Initial Comments: GENERAL: Patient is well-developed and well-nourished. Patient is nontoxic and in no acute distress. HEAD: Atraumatic, normocephalic. EYES: Pupils equal round and reactive to light, extraocular movements intact, sclera anicteric, conjunctiva are normal. Eyelids were unremarkable. ENT: TMs normal, nares patent, oropharynx clear without exudates. Moist mucous membranes. NECK: Normal range of motion, supple without lymphadenopathy or JVD. LUNGS: Unlabored respirations. Breath sounds clear to auscultation bilaterally and equal. No wheezes rales or rhonchi. HEART: Regular rate and rhythm without murmurs, rubs or gallops. ABDOMEN: Soft, nontender, normoactive bowel sounds. No guarding, no rebound. No masses appreciated. : Deferred MUSCULOSKELETAL: Normal extremities with adequate strength and normal range of motion, no pitting or edema. No clubbing or cyanosis. NEUROLOGICAL: Patient is alert and oriented x 3. SKIN: Warm, Dry, normal turgor, no rashes or lesions noted. Limitations: no limitations Course Vital Signs 11/01/20 13:33 Temperature 98.3 F Pulse Rate 72 Respiratory 20 Rate Blood Pressure 127/81 O2 Sat by Pulse 98 Oximetry Medical Decision Making - Medical Decision Making Patient is a 45-year-old male with history of mild asthma presenting for a positive Covid test today and some mild symptoms. His vital signs are completely stable, his exam is unremarkable. Chest x-ray shows no acute pulmonary process, some mild cardiomegaly. Patient did meet qualifications for monoclonal antibodies. He did receive these, no adverse side effects. I recommended continue Tylenol/Motrin for any discomfort. He can follow-up with his PCP. Return parameters were discussed with him and he verbalized understanding. Case discussed Dr. Mcdowell. Disposition Clinical Impression: COVID-19 Disposition: HOME SELF-CARE Condition: Stable Instructions (If sedation given, give patient instructions): Coronavirus Disease 2019 (COVID-19) Additional Instructions: Please return to the Emergency Department if symptoms worsen or any other concerns. May alternate between Tylenol and Motrin for fever and/or headache control. Follow up with your primary care physician as needed. Is patient prescribed a controlled substance at d/c from ED?: No Referrals: Chika Ortiz III, MD [Primary Care Provider] - 1-2 days Time of Disposition: 17:46
[2020-11-01 18:45] VITALS: BP 127/77; PULSE 73; RESP 18
== END 2020-11-01 18:44 | disposition home or self-care (01) ==
LOC: EC 13:32
DX: U07.1 COVID-19 (principal); J45.909 Unspecified asthma, uncomplicated
CPT/HCPCS: 71045; 96365; 99284

== ENCOUNTER 2021-06-06 22:35 | Emergency (ER) | payer OTHER, BC ==
[2021-06-06 22:43] VITALS: TEMP 98.9
[2021-06-06 22:44] LABS: Glucose,Whole Blood 168 mg/dL (75-99)
[2021-06-06] MEDS ORDERED: SODIUM CHLORIDE 0.9% 1,000 ML IV STA (22:51)
[2021-06-06] MEDS ORDERED: HYDROmorphone 0.5 MG/0.5 ML SYRINGE IVP STA (22:51)
--- NOTE | 2021-06-06 22:59 | ED ---
Upper Extremity HPI - General Chief Complaint: Extremity Injury, Upper Stated Complaint: [facility]-Arm Injury Time Seen by Provider: 06/06/21 22:44 Source: EMS Mode of arrival: EMS - History of Present Illness Initial Comments: This patient is a 45-year-old man brought here from work. The patient's left arm was trapped between to mechanical rollers and at piece of machinery. [place] ngo states that his left arm was trapped for 20 minutes. There is pain all way from the shoulder. He states that the pain from the shoulders because he was having to stand on the toes of the feet because the machine was too high for him. The rollers had impacted his left forearm. The patient states he does have sensation to the fingers. He states he is able to move his fingers a little bit. He is not able to identify one part of the arm it hurts worse than the other MD Complaint: Injury to:: left, arm -: minutes(s) Other Injuries: none Handedness: right Place: work Improves With: none Worsens With: none Context: crush Associated Symptoms: denies other symptoms Treatments Prior to Arrival: splint, other - Related Data Home Medications Medication Instructions Recorded Confirmed Sertraline [Zoloft] 100 mg PO DAILY 06/26/17 02/15/18 Ibuprofen [Motrin Ib] 800 mg PO Q8H PRN 02/15/18 02/15/18 Allergies Allergy/AdvReac Type Severity Reaction Status Date / Time No Known Allergies Allergy Verified 11/01/20 13:38 Review of Systems ROS Statement: Those systems with pertinent positive or pertinent negative responses have been documented in the HPI. ROS Other: All systems not noted in ROS Statement are negative. Constitutional: Denies: fever Respiratory: Denies: cough, dyspnea Cardiovascular: Denies: chest pain, palpitations, edema, syncope Gastrointestinal: Denies: abdominal pain, nausea, vomiting Genitourinary: Denies: testicular pain Musculoskeletal: Reports: as per HPI, arthralgia, myalgia. Denies: back pain Skin: Denies: rash Neurological: Denies: headache, weakness, numbness Hematological/Lymphatic: Denies: easy bleeding Past Medical History Past Medical History: Asthma, Sleep Apnea/CPAP/BIPAP Additional Past Medical History / Comment(s): constipation (last bm 3 days ago), " watching cholesterol-no med yet), upper front dental , uses cpap machine, implant."hemorrhage rt eye 3 months ago" History of Any Multi-Drug Resistant Organisms: None Reported Past Surgical History: Appendectomy, Cholecystectomy Past Anesthesia/Blood Transfusion Reactions: No Reported Reaction Past Psychological History: Depression Smoking Status: Never smoker Past Alcohol Use History: Occasional Past Drug Use History: None Reported - Past Family History Mother Family Medical History: Cancer Additional Family Medical History / Comment(s): age 61 from non small cell lung cancer Father Family Medical History: Hyperlipidemia, Hypertension General Exam General appearance: alert, in distress Head exam: Present: atraumatic, normocephalic Eye exam: Present: normal appearance ENT exam: Present: mucous membranes dry Neck exam: Present: normal inspection, full ROM. Absent: tenderness Respiratory exam: Present: normal lung sounds bilaterally. Absent: respiratory distress, wheezes, rales, rhonchi, stridor, chest wall tenderness Cardiovascular Exam: Present: regular rate, normal rhythm, normal heart sounds. Absent: systolic murmur, diastolic murmur, rubs, gallop GI/Abdominal exam: Present: soft. Absent: distended, tenderness, guarding, rebound, rigid, mass Back exam: Present: normal inspection. Absent: CVA tenderness (R), CVA tenderness (L), vertebral tenderness Neurological exam: Present: alert, oriented X3, CN II-XII intact. Absent: motor sensory deficit Skin exam: Present: warm, dry, intact, normal color, abrasion (Medial aspect left upper arm.). Absent: rash Course Vital Signs 06/06/21 22:36 Temperature 98.9 F Pulse Rate 75 Respiratory 18 Rate Blood Pressure 152/84 O2 Sat by Pulse 98 Oximetry Medical Decision Making - Lab Data Result diagrams: 06/06/21 22:46 06/06/21 22:46 Lab Results 06/06/21 06/06/21 06/06/21 Range/Units 22:43 22:46 22:46 WBC (3.8-10.6) k/uL RBC (4.30-5.90) m/uL Hgb (13.0-17.5) gm/dL Hct (39.0-53.0) % MCV (80.0-100.0) fL MCH (25.0-35.0) pg MCHC (31.0-37.0) g/dL RDW (11.5-15.5) % Plt Count (150-450) k/uL MPV Neutrophils % % Lymphocytes % % Monocytes % % Eosinophils % % Basophils % % Neutrophils # (1.3-7.7) k/uL Lymphocytes # (1.0-4.8) k/uL Monocytes # (0-1.0) k/uL Eosinophils # (0-0.7) k/uL Basophils # (0-0.2) k/uL PT 10.7 (9.0-12.0) sec INR 1.0 (<1.2) APTT 21.0 L (22.0-30.0) sec Sodium 139 (137-145) mmol/L Potassium 4.2 (3.5-5.1) mmol/L Chloride 104 (98-107) mmol/L Carbon Dioxide 23 (22-30) mmol/L Anion Gap 12 mmol/L BUN 15 (9-20) mg/dL Creatinine 0.78 (0.66-1.25) mg/dL Est GFR (CKD-EPI)AfAm >90 (>60 ml/min/1.73 sqM) Est GFR (CKD-EPI)NonAf >90 (>60 ml/min/1.73 sqM) Glucose 172 H (74-99) mg/dL POC Glucose (mg/dL) 168 H (75-99) mg/dL POC Glu [employer] Maker ID Salvador Mendes Plasma Lactic Acid Blake (0.7-2.0) mmol/L Calcium 9.5 (8.4-10.2) mg/dL Phosphorus 3.9 (2.5-4.5) mg/dL Magnesium 1.9 (1.6-2.3) mg/dL Total Bilirubin 0.6 (0.2-1.3) mg/dL AST 37 (17-59) U/L ALT 50 H (4-49) U/L Alkaline Phosphatase 73 (38-126) U/L Total Creatine Kinase (55-170) U/L CK-MB (CK-2) (0.0-2.4) ng/mL CK-MB (CK-2) Rel Index Troponin I (0.000-0.034) ng/mL Total Protein 7.6 (6.3-8.2) g/dL Albumin 4.6 (3.5-5.0) g/dL Amylase 64 (30-110) U/L Lipase 45 (23-300) U/L Urine Color Urine Appearance (Clear) Urine pH (5.0-8.0) Ur Specific Buckhorn (1.001-1.035) Urine Protein (Negative) Urine Glucose (UA) (Negative) Urine Ketones (Negative) Urine Blood (Negative) Urine Nitrite (Negative) Urine Bilirubin (Negative) Urine Urobilinogen (<2.0) mg/dL Ur Leukocyte Esterase (Negative) Serum Alcohol <10 mg/dL Blood Type Blood Type Confirm Blood Type Recheck Bld Type Recheck Status Antibody Screen Spec Expiration Date 06/06/21 06/06/21 06/06/21 Range/Units 22:46 22:46 22:46 WBC 7.7 (3.8-10.6) k/uL RBC 5.27 (4.30-5.90) m/uL Hgb 16.0 (13.0-17.5) gm/dL Hct 47.7 (39.0-53.0) % MCV 90.5 (80.0-100.0) fL MCH 30.3 (25.0-35.0) pg MCHC 33.5 (31.0-37.0) g/dL RDW 12.9 (11.5-15.5) % Plt Count 264 (150-450) k/uL MPV 7.1 Neutrophils % 57 % Lymphocytes % 31 % Monocytes % 4 % Eosinophils % 6 % Basophils % 1 % Neutrophils # 4.3 (1.3-7.7) k/uL Lymphocytes # 2.4 (1.0-4.8) k/uL Monocytes # 0.3 (0-1.0) k/uL Eosinophils # 0.5 (0-0.7) k/uL Basophils # 0.0 (0-0.2) k/uL PT (9.0-12.0) sec INR (<1.2) APTT (22.0-30.0) sec Sodium (137-145) mmol/L Potassium (3.5-5.1) mmol/L Chloride (98-107) mmol/L Carbon Dioxide (22-30) mmol/L Anion Gap mmol/L BUN (9-20) mg/dL Creatinine (0.66-1.25) mg/dL Est GFR (CKD-EPI)AfAm (>60 ml/min/1.73 sqM) Est GFR (CKD-EPI)NonAf (>60 ml/min/1.73 sqM) Glucose (74-99) mg/dL POC Glucose (mg/dL) (75-99) mg/dL POC Glu [employer] Tool Maker ID Plasma Lactic Acid Blake (0.7-2.0) mmol/L Calcium (8.4-10.2) mg/dL Phosphorus (2.5-4.5) mg/dL Magnesium (1.6-2.3) mg/dL Total Bilirubin (0.2-1.3) mg/dL AST (17-59) U/L ALT (4-49) U/L Alkaline Phosphatase (38-126) U/L Total Creatine Kinase 184 H (55-170) U/L CK-MB (CK-2) 2.1 (0.0-2.4) ng/mL CK-MB (CK-2) Rel Index 1.1 Troponin I <0.012 (0.000-0.034) ng/mL Total Protein (6.3-8.2) g/dL Albumin (3.5-5.0) g/dL Amylase (30-110) U/L Lipase (23-300) U/L Urine Color Urine Appearance (Clear) Urine pH (5.0-8.0) Ur Specific [place] (1.001-1.035) Urine Protein (Negative) Urine Glucose (UA) (Negative) Urine Ketones (Negative) Urine Blood (Negative) Urine Nitrite (Negative) Urine Bilirubin (Negative) Urine Urobilinogen (<2.0) mg/dL Ur Leukocyte Esterase (Negative) Serum Alcohol mg/dL Blood Type O Negative Blood Type Confirm Blood Type Recheck No Previous Record Bld Type Recheck Status CABO Indicated Antibody Screen NEGATIVE Spec Expiration Date 06/09/2021 - 234506/06/21 06/06/21 06/07/21 Range/Units 22:48 22:59 00:16 WBC (3.8-10.6) k/uL RBC (4.30-5.90) m/uL Hgb (13.0-17.5) gm/dL Hct (39.0-53.0) % MCV (80.0-100.0) fL MCH (25.0-35.0) pg MCHC (31.0-37.0) g/dL RDW (11.5-15.5) % Plt Count (150-450) k/uL MPV Neutrophils % % Lymphocytes % % Monocytes % % Eosinophils % % Basophils % % Neutrophils # (1.3-7.7) k/uL Lymphocytes # (1.0-4.8) k/uL Monocytes # (0-1.0) k/uL Eosinophils # (0-0.7) k/uL Basophils # (0-0.2) k/uL PT (9.0-12.0) sec INR (<1.2) APTT (22.0-30.0) sec Sodium (137-145) mmol/L Potassium (3.5-5.1) mmol/L Chloride (98-107) mmol/L Carbon Dioxide (22-30) mmol/L Anion Gap mmol/L BUN (9-20) mg/dL Creatinine (0.66-1.25) mg/dL Est GFR (CKD-EPI)AfAm (>60 ml/min/1.73 sqM) Est GFR (CKD-EPI)NonAf (>60 ml/min/1.73 sqM) Glucose (74-99) mg/dL POC Glucose (mg/dL) (75-99) mg/dL POC Glu [employer] Tool Maker ID Plasma Lactic Acid Blake 2.9 H* (0.7-2.0) mmol/L Calcium (8.4-10.2) mg/dL Phosphorus (2.5-4.5) mg/dL Magnesium (1.6-2.3) mg/dL Total Bilirubin (0.2-1.3) mg/dL AST (17-59) U/L ALT (4-49) U/L Alkaline Phosphatase (38-126) U/L Total Creatine Kinase (55-170) U/L CK-MB (CK-2) (0.0-2.4) ng/mL CK-MB (CK-2) Rel Index Troponin I (0.000-0.034) ng/mL Total Protein (6.3-8.2) g/dL Albumin (3.5-5.0) g/dL Amylase (30-110) U/L Lipase (23-300) U/L Urine Color Yellow Urine Appearance Clear (Clear) Urine pH 5.5 (5.0-8.0) Ur Specific [place] 1.026 (1.001-1.035) Urine Protein Negative (Negative) Urine Glucose (UA) Negative (Negative) Urine Ketones Negative (Negative) Urine Blood Negative (Negative) Urine Nitrite Negative (Negative) Urine Bilirubin Negative (Negative) Urine Urobilinogen <2.0 (<2.0) mg/dL Ur Leukocyte Esterase Negative (Negative) Serum Alcohol mg/dL Blood Type Blood Type Confirm O Negative Blood Type Recheck Bld Type Recheck Status Antibody Screen Spec Expiration Date - EKG Data -: EKG Interpreted by [facility] EKG shows normal: sinus rhythm, axis (Normal), intervals (Normal), QRS complexes (Normal), ST-T waves (Normal) Rate: normal (Rate 93 bpm) Disposition Clinical Impression: Contusion of arm, left Disposition: HOME SELF-CARE Condition: Good Instructions (If sedation given, give patient instructions): Contusion in Adults (ED) Is patient prescribed a controlled substance at d/c from ED?: No Referrals: Chika Ortiz III, MD [Primary Care Provider] - 1-2 days Farshad Boo MD [REFERRING] - 1-2 days
[2021-06-06 23:01] LABS: Basophils % (A) 1 %; Eosinophils # (A) 0.5 k/uL (0-0.7); Eosinophils % (A) 6 %; HCT 47.7 % (39.0-53.0); Lymphocytes # (A) 2.4 k/uL (1.0-4.8); Lymphocytes % (A) 31 %; MCH 30.3 pg (25.0-35.0); MCHC 33.5 g/dL (31.0-37.0); MCV 90.5 fL (80.0-100.0); Mean Platelet Volume 7.1; Monocytes # (A) 0.3 k/uL (0-1.0); Monocytes % (A) 4 %; Neutrophils # (A) 4.3 k/uL (1.3-7.7); Neutrophils % (A) 57 %; Platelet Count 264 k/uL (150-450); RBC 5.27 m/uL (4.30-5.90); RDW 12.9 % (11.5-15.5); WBC 7.7 k/uL (3.8-10.6)
[2021-06-06 23:09] LABS: Creatine Kinase 184 U/L (55-170)
[2021-06-06 23:12] LABS: ALT 50 U/L (4-49); AST 37 U/L (17-59); African American GFR (CKD) >90 (>60 ml/min/1.73 sqM); Albumin 4.6 g/dL (3.5-5.0); Alcohol <10 mg/dL; Alkaline Phosphatase 73 U/L (38-126); Amylase 64 U/L (30-110); Anion Gap 12 mmol/L; Blood Urea Nitrogen 15 mg/dL (9-20); Calcium 9.5 mg/dL (8.4-10.2); Carbon Dioxide 23 mmol/L (22-30); Chloride 104 mmol/L (98-107); Glucose 172 mg/dL (74-99); Lipase 45 U/L (23-300); Magnesium 1.9 mg/dL (1.6-2.3); Non-African American GFR(CKD) >90 (>60 ml/min/1.73 sqM); Phosphorus 3.9 mg/dL (2.5-4.5); Potassium 4.2 mmol/L (3.5-5.1); Sodium 139 mmol/L (137-145); Total Bilirubin 0.6 mg/dL (0.2-1.3); Total Protein 7.6 g/dL (6.3-8.2)
[2021-06-06 23:15] LABS: Prothrombin Time 10.7 sec (9.0-12.0)
--- NOTE | 2021-06-06 23:18 | XR ---
EXAMINATION TYPE: XR forearm LT DATE OF EXAM: 06/06/2021 COMPARISON: NONE HISTORY: Pain TECHNIQUE: 2 views FINDINGS: No fracture nor dislocation. Carpal bones appear intact. Elbow joint appears intact. IMPRESSION: No acute abnormality of the left forearm..
--- NOTE | 2021-06-06 23:19 | XR ---
EXAMINATION TYPE: XR hand limited LT DATE OF EXAM: 06/06/2021 COMPARISON: NONE HISTORY: Arm pain TECHNIQUE: 2 views FINDINGS: I see no fracture nor dislocation. Metacarpals are intact. The fingers appear intact. Joint spaces are fairly normal. No evidence of a foreign body. IMPRESSION: No acute abnormality of the left hand.
--- NOTE | 2021-06-06 23:20 | XR ---
EXAMINATION TYPE: XR humerus LT DATE OF EXAM: 06/06/2021 COMPARISON: NONE HISTORY: Pain TECHNIQUE: 3 views FINDINGS: Humerus is intact. Shoulder joint is intact. Elbow joint is intact. I see no fracture nor d islocation. IMPRESSION: Negative left humerus exam.
[2021-06-06 23:22] LABS: Creatine Kinase MB 2.1 ng/mL (0.0-2.4); Troponin I <0.012 ng/mL (0.000-0.034)
[2021-06-07 00:32] LABS: Appearance,Urine Clear (Clear); Bilirubin,Urine Negative (Negative); Blood,Urine Negative (Negative); Color,Urine Yellow; Glucose,Urine (UA) Negative (Negative); Ketones,Urine Negative (Negative); Leukocyte Esterase,Urine Negative (Negative); Nitrite,Urine Negative (Negative); PH, Urine 5.5 (5.0-8.0); Protein,Urine Negative (Negative); Specific Gravity,Urine 1.026 (1.001-1.035); Urobilinogen,Urine <2.0 mg/dL (<2.0)
[2021-06-07 02:20] VITALS: BP 108/79; PULSE 71; RESP 16
== END 2021-06-07 02:01 | disposition home or self-care (01) ==
LOC: EC 22:35
DX: S40.022A Contusion of left upper arm, initial encounter (principal); J45.909 Unspecified asthma, uncomplicated; F32.A Depression, unspecified; Z90.49 Acquired absence of other specified parts of digestive tract; W23.1XXA Caught, crushed, jammed, or pinched between stationary objects, initial encounter
CPT/HCPCS: 36415; 80053; 80320; 81003; 82150; 82550; 82553; 83605; 83690; 83735; 84100; 84484; 85025; 85610; 85730; 86850; 86900; 86901; 96360; 99284

== ENCOUNTER → 2021-06-13 | Outpatient (CLI) | payer OTHER ==
--- NOTE | 2021-06-13 12:11 | XR ---
EXAMINATION TYPE: XR elbow complete LT DATE OF EXAM: 06/13/2021 COMPARISON: 06/06/2021, 10/21/2017 HISTORY: Injury abrasion TECHNIQUE: 3 view right elbow FINDINGS: Anterior fat pad is normal. No elevation posterior fat pad is evident which is normal. Radi us aligns normally with the humerus. No acute fracture or dislocation is evident. Joint spaces are preserved. IMPRESSION: 1. Normal 3 view left elbow
== END | disposition home or self-care (01) ==
LOC: RADXRMAIN 11:39
PROVIDERS: ATTEND Emergency Medicine
DX: S50.312A Abrasion of left elbow, initial encounter (principal); X58.XXXA Exposure to other specified factors, initial encounter